=== PATIENT | female | born 1985 | race Caucasian/White ===

== ENCOUNTER → 2016-11-09 | Outpatient (CLI) | payer MEDICARE, OTHER ==
--- NOTE | 2016-11-09 12:56 | US ---
EXAMINATION TYPE: US kidneys/renal and bladder DATE OF EXAM: 11/09/2016 12:27 PM COMPARISON: CT abdomen and pelvis December 08, 2012. Renal ultrasound April 21, 2013. CLINICAL HISTORY: Renal failure, history of renal Bx. EXAM MEASUREMENTS: Right Kidney: 11.1 x 4.8 x 5.6cm Left Kidney: 10.3 x 5.9 x 4.7cm TECHNOLOGIST IMPRESSION: Right Kidney: wnl Left Kidney: 1.0 x 0.9 x 1.1cm hypoechoic cystic area inferior pole suspect simple cyst, 2.2 x 2.3 x 2.0cm hypoechoic to anechoic lobulated mid pole favor lobulated otherwise simple cyst, solid lesion however is not entirely excluded. Bladder: wnl Bilateral Jets seen: yes There is no evidence for hydronephrosis at this point in time. The urinary bladder is anechoic. Bila teral ureteral jets are seen. IMPRESSION: No hydronephrosis is evident bilaterally. Nonspecific lobulated 2.3 cm lesion mid pole level left kid mel could reflect simple cyst but solid lesion is not entirely excluded. Consider renal protocol cont rast-enhanced MRI to further evaluate. Normal Values: Renal Length = 9 - 12cm Bladder Wall: < 0.3cm
== END | disposition home or self-care (01) ==
LOC: RADUSWWP 12:06
PROVIDERS: ATTEND Internal Medicine Nephrology
DX: N28.89 Other specified disorders of kidney and ureter (principal)
CPT/HCPCS: 76770

== ENCOUNTER → 2016-12-15 | Outpatient (CLI) | payer MEDICARE, OTHER ==
[2016-12-15 12:53] LABS: ALT 33 U/L (9-52); AST 26 U/L (14-36); C Reactive Protein <5.0 mg/L (<10.0); Non-African American GFR(MDRD) >60 (>60 ml/min/1.73 sqM)
[2016-12-15 13:28] LABS: Basophils % (A) 0 %; CH 31.4; Eosinophils % (A) 0 %; HDW 2.55; HGB 13.3 gm/dL (11.4-16.0); Luc # (Auto) 0.08; Luc % (Auto) 2; Lymphocytes # (A) 1.4 k/uL (1.0-4.8); Lymphocytes % (A) 28 %; MCHC 32.5 g/dL (31.0-37.0); MCV 95.4 fL (80.0-100.0); Mean Platelet Volume 8.4; Monocytes # (A) 0.2 k/uL (0-1.0); Monocytes % (A) 4 %; Neutrophils # (A) 3.4 k/uL (1.3-7.7); Neutrophils % (A) 67 %; RBC 4.29 m/uL (3.80-5.40); RDW 12.1 % (11.5-15.5); WBC 5.1 k/uL (3.8-10.6); WBC (Perox) 5.35
[2016-12-15 14:03] LABS: Appearance,Urine Cloudy (Clear); Bacteria,Urine Rare /hpf; Bilirubin,Urine Negative (Negative); Glucose,Urine (UA) Negative (Negative); Ketones,Urine Trace (Negative); Leukocyte Esterase,Urine Negative (Negative); Mucus,Urine Rare /hpf; Nitrite,Urine Negative (Negative); Particle Count 18506; Protein,Urine 3+ (Negative); RBC,Urine 5 /hpf (0-5); Specific Gravity,Urine 1.031 (1.001-1.035); Squamous Epithelial Cell,Urine 4 /hpf (0-4); UA Billing (MACRO vs. MICRO) MICRO; WBC,Urine 4 /hpf (0-5)
[2016-12-15 15:22] LABS: Erythrocyte Sedimentation Rate 13 mm/hr (0-20)
[2016-12-25 06:15] LABS: Mis test requested (Non-blood) Urine Prot/Crt Ratio
== END | disposition home or self-care (01) ==
LOC: LABWHC1 12:10
PROVIDERS: ATTEND Internal Medicine Rheumatology
DX: M32.9 Systemic lupus erythematosus, unspecified (principal)
CPT/HCPCS: 36415; 81001; 82565; 82570; 84450; 84460; 85025; 85652; 86140

== ENCOUNTER 2017-02-18 10:44 | Emergency (ER) | payer MEDICARE, OTHER ==
[2017-02-18] MEDS ORDERED: SODIUM CHLORIDE 0.9% 1,000 ML IV STA (11:34)
[2017-02-18] MEDS ORDERED: KETOROLAC 30 MG/ML 1 ML VIAL IVP STA (11:34)
[2017-02-18] MEDS ORDERED: METOCLOPRAMIDE 5 MG/ML 2 ML VIAL IVP STA (11:34)
--- NOTE | 2017-02-18 11:44 | ED ---
General Adult HPI - General Chief complaint: Upper Respiratory Infection Stated complaint: body aches,nausea Time Seen by Provider: 02/18/17 11:20 Source: patient, RN notes reviewed Mode of arrival: wheelchair Limitations: no limitations - History of Present Illness Initial comments: Patient 31-year-old female who presents emergency room today with chief complaint of having symptoms of nausea and headache off-and-on over the last 4 months. She states symptoms started around the first of the year. She states she's talked her family doctor about them. She states today she is tired of being strong at home and decided to come here to the emergency room for this. She states she takes [place] for pain. States took one this morning the pain is increasing again. Does admit to headache the front of the head. States she's had headaches worse than this in the past. She states she does have symptoms of nausea no vomiting. Does admit to some abdominal pain that comes and goes cramping in nature. Patient denies any other complaints or associated symptoms at this time. She admits to history of lupus is unsure if the symptoms are related. Patient denies any recent fever, chills, shortness of breath, chest pain, back pain, vomiting, numbness or tingling, dysuria or hematuria, constipation or diarrhea, visual changes, or any other complaints. - Related Data Home Medications Medication Instructions Recorded Confirmed ALPRAZolam [Xanax] 2 mg PO TID 11/12/14 02/18/17 predniSONE [Prednisone] 5 mg PO QAM 11/12/14 02/18/17 HYDROcodone/APAP 10-325MG [[place] 1 tab PO Q4HR PRN 02/18/17 02/18/17 10-325] Hydroxychloroquine Sulfate 400 mg PO BID 02/18/17 02/18/17 [Plaquenil] Lisinopril [Lisinopril] 2.5 mg PO HS 02/18/17 02/18/17 Methotrexate Sodium [Methotrexate] 20 mg PO Th 02/18/17 02/18/17 Pnv with Ca,No.72/Iron/FA 1 tab PO DAILY 02/18/17 02/18/17 [ Plus Tablet] Pregabalin [Lyrica] 150 mg PO HS 02/18/17 02/18/17 Previous Rx's Medication Instructions Recorded Mycophenolate Mofetil [Cellcept] 1,000 mg PO BID tab 07/28/15 Nicotine 21Mg/24Hr Patch [Habitrol] 1 patch TRANSDERM DAILY patch 07/28/15 Omeprazole [PriLOSEC] 20 mg PO AC-BRKFST capsule. 07/28/15 Ondansetron Odt [Zofran ODT] 4 mg PO Q8HR PRN #20 tab 02/18/17 Allergies Allergy/AdvReac Type Severity Reaction Status Date / Time rituximab [From Rituxan] Allergy Anaphylaxis Verified 07/25/15 19:25 amlodipine besylate AdvReac Swelling Verified 07/25/15 19:25 [From Norvasc] Review of Systems ROS Statement: Those systems with pertinent positive or pertinent negative responses have been documented in the HPI. ROS Other: All systems not noted in ROS Statement are negative. Past Medical History Past Medical History: Cancer, Fibromyalgia, GERD/Reflux, Hypertension, Pneumonia , Renal Disease, Rheumatoid Arthritis (RA) Additional Past Medical History / Comment(s): Systemic Lupus, lupus nephritis with acute kidney injury 2012, Raynauds, chronic anemia requiring iron infusions and blood infusions, basal cell carcinoma right lower leg, hiatal hernia, migraines. History of Any Multi-Drug Resistant Organisms: None Reported Past Surgical History: Cholecystectomy Additional Past Surgical History / Comment(s): L shoulder bone shaved, lymph nodes removedx3 from bilateral axilla-benign, colonoscopy Past Anesthesia/Blood Transfusion Reactions: No Reported Reaction Past Psychological History: Anxiety, Depression Additional Psychological History / Comment(s): mild deprssion and this past week not sleeping good d/t nite sweats and pain getting maybe 2-3 hours sleep per night Smoking Status: Current every day smoker Past Alcohol Use History: Occasional Additional Past Alcohol Use History / Comment(s): started smoking at age 12 amokes 1/2-1 ppd. She denies any medical marijuana, marijuana, street drug use. She drinks alcohol rarely. She lives at home and has a cat and rabbit in the house. She is currently on disability. She denies any recent travel although [place]'s gone [place]. Past Drug Use History: None Reported - Past Family History Sister(s) Additional Family Medical History / Comment(s): pt's 1/2 sister had lupus Mother Family Medical History: Rheumatoid Arthritis (RA) Additional Family Medical History / Comment(s): hep c. maternal grandmother had dementia Father History Unknown: Yes Additional Family Medical History / Comment(s): pt's dad when she was 2 General Exam - General Exam Comments Initial Comments: General: The patient is awake and alert, in no distress, and does not appear acutely ill. Eye: Pupils are equal, round and reactive to light, extra-ocular movements are intact. No nystagmus. There is normal conjunctiva bilaterally. No signs of icterus. Ears, nose, mouth and throat: There are moist mucous membranes and no oral lesions. Neck: The neck is supple, there is no tenderness or JVD. Cardiovascular: There is a regular rate and rhythm. No murmur, rub or gallop is appreciated. Respiratory: Lungs are clear to auscultation, respirations are non-labored, breath sounds are equal. No wheezes, stridor, rales, or rhonchi. Gastrointestinal: Normal appearance abdomen. Normal bowel sounds. Abdomen soft on palpation. Mild tenderness epigastric and right lower quadrant. No rebound tenderness. No guarding. No CVA tenderness. Musculoskeletal: Normal ROM, no tenderness. Strength 5/5. Sensation intact. Pulses equal bilaterally 2+. Neurological: A&O x 3. CN II-XII intact, There are no obvious motor or sensory deficits. Coordination appears grossly intact. Speech is normal. Skin: Skin is warm and dry and no rashes or lesions are noted. Psychiatric: Cooperative, appropriate mood & affect, normal judgment. Limitations: no limitations Course Vital Signs 02/18/17 10:45 Temperature 99.8 F H Pulse Rate 101 H Respiratory 18 Rate Blood Pressure 135/82 O2 Sat by Pulse 100 Oximetry Medical Decision Making - Medical Decision Making Patient reexamined at this time shows no signs of distress. She is resting comfortably. Does not that symptoms have improved after medications given here in the emergency room. Patient will be discharged home with nausea medication. Advised to follow-up the family doctor over the next 2 days. Advised to increase oral fluids. Advised return for any other concerns. She states understanding and is in agreement with this plan. - Lab Data Result diagrams: 02/18/17 12:00 02/18/17 12:00 Lab Results 02/18/17 02/18/17 02/18/17 Range/Units 12:00 12:00 12:00 WBC 7.0 (3.8-10.6) k/uL RBC 4.23 (3.80-5.40) m/uL Hgb 13.8 (11.4-16.0) gm/dL Hct 40.7 (34.0-46.0) % MCV 96.1 (80.0-100.0) fL MCH 32.7 (25.0-35.0) pg MCHC 34.0 (31.0-37.0) g/dL RDW 12.3 (11.5-15.5) % Plt Count 131 L (150-450) k/uL Neutrophils % 81 % Lymphocytes % 16 % Monocytes % 3 % Eosinophils % 0 % Basophils % 0 % Neutrophils # 5.6 (1.3-7.7) k/uL Lymphocytes # 1.1 (1.0-4.8) k/uL Monocytes # 0.2 (0-1.0) k/uL Eosinophils # 0.0 (0-0.7) k/uL Basophils # 0.0 (0-0.2) k/uL Sodium 143 (137-145) mmol/L Potassium 4.8 (3.5-5.1) mmol/L Chloride 106 (98-107) mmol/L Carbon Dioxide 28 (22-30) mmol/L Anion Gap 9 mmol/L BUN 16 (7-17) mg/dL Creatinine 0.80 (0.52-1.04) mg/dL Est GFR (MDRD) Af Amer >60 (>60 ml/min/1.73 sqM) Est GFR (MDRD) Non-Af >60 (>60 ml/min/1.73 sqM) Glucose 86 (74-99) mg/dL Calcium 9.3 (8.4-10.2) mg/dL Total Bilirubin 0.4 (0.2-1.3) mg/dL AST 24 (14-36) U/L ALT 26 (9-52) U/L Alkaline Phosphatase 42 (38-126) U/L Total Protein 7.2 (6.3-8.2) g/dL Albumin 4.4 (3.5-5.0) g/dL Amylase 80 (30-110) U/L Lipase 81 (23-300) U/L Urine Color Urine Appearance (Clear) Urine pH (5.0-8.0) Ur Specific [place] (1.001-1.035) Urine Protein (Negative) Urine Glucose (UA) (Negative) Urine Ketones (Negative) Urine Blood (Negative) Urine Nitrite (Negative) Urine Bilirubin (Negative) Urine Urobilinogen (<2.0) mg/dL Ur Leukocyte Esterase (Negative) Urine HCG, Qual Not Detected (Not Detectd) 02/18/17 Range/Units 12:00 WBC (3.8-10.6) k/uL RBC (3.80-5.40) m/uL Hgb (11.4-16.0) gm/dL Hct (34.0-46.0) % MCV (80.0-100.0) fL MCH (25.0-35.0) pg MCHC (31.0-37.0) g/dL RDW (11.5-15.5) % Plt Count (150-450) k/uL Neutrophils % % Lymphocytes % % Monocytes % % Eosinophils % % Basophils % % Neutrophils # (1.3-7.7) k/uL Lymphocytes # (1.0-4.8) k/uL Monocytes # (0-1.0) k/uL Eosinophils # (0-0.7) k/uL Basophils # (0-0.2) k/uL Sodium (137-145) mmol/L Potassium (3.5-5.1) mmol/L Chloride (98-107) mmol/L Carbon Dioxide (22-30) mmol/L Anion Gap mmol/L BUN (7-17) mg/dL Creatinine (0.52-1.04) mg/dL Est GFR (MDRD) Af Amer (>60 ml/min/1.73 sqM) Est GFR (MDRD) Non-Af (>60 ml/min/1.73 sqM) Glucose (74-99) mg/dL Calcium (8.4-10.2) mg/dL Total Bilirubin (0.2-1.3) mg/dL AST (14-36) U/L ALT (9-52) U/L Alkaline Phosphatase (38-126) U/L Total Protein (6.3-8.2) g/dL Albumin (3.5-5.0) g/dL Amylase (30-110) U/L Lipase (23-300) U/L Urine Color Colorless Urine Appearance Clear (Clear) Urine pH 6.5 (5.0-8.0) Ur Specific [place] 1.003 (1.001-1.035) Urine Protein Negative (Negative) Urine Glucose (UA) Negative (Negative) Urine Ketones Negative (Negative) Urine Blood Negative (Negative) Urine Nitrite Negative (Negative) Urine Bilirubin Negative (Negative) Urine Urobilinogen <2.0 (<2.0) mg/dL Ur Leukocyte Esterase Negative (Negative) Urine HCG, Qual (Not Detectd) Disposition Clinical Impression: Nausea, Headache Disposition: HOME SELF-CARE Condition: Good Additional Instructions: Please use medication as discussed. Please follow-up with family doctor in the next 2 days. Please return to emergency room if the symptoms increase or worsen or for any other concerns. Prescriptions: Ondansetron Odt [Zofran ODT] 4 mg PO Q8HR PRN #20 tab PRN Reason: Nausea Time of Disposition: 13:29
[2017-02-18] MEDS ORDERED: ONDANSETRON 4 MG/2 ML VIAL IVP STA (12:07)
[2017-02-18 12:19] LABS: Appearance,Urine Clear (Clear); Bilirubin,Urine Negative (Negative); Glucose,Urine (UA) Negative (Negative); Ketones,Urine Negative (Negative); Leukocyte Esterase,Urine Negative (Negative); Nitrite,Urine Negative (Negative); PH, Urine 6.5 (5.0-8.0); Protein,Urine Negative (Negative); Specific Gravity,Urine 1.003 (1.001-1.035); UA Billing (MACRO vs. MICRO) CHEM; Urobilinogen,Urine <2.0 mg/dL (<2.0)
[2017-02-18 12:22] LABS: Basophils % (A) 0 %; CH 31.7; CHCM 33.1; Eosinophils % (A) 0 %; HCT 40.7 % (34.0-46.0); HGB 13.8 gm/dL (11.4-16.0); Luc # (Auto) 0.04; Luc % (Auto) 1; Lymphocytes # (A) 1.1 k/uL (1.0-4.8); Lymphocytes % (A) 16 %; MCH 32.7 pg (25.0-35.0); MCV 96.1 fL (80.0-100.0); Mean Platelet Volume 8.4; Monocytes # (A) 0.2 k/uL (0-1.0); Monocytes % (A) 3 %; Neutrophils # (A) 5.6 k/uL (1.3-7.7); Neutrophils % (A) 81 %; RBC 4.23 m/uL (3.80-5.40); RDW 12.3 % (11.5-15.5); WBC (Perox) 7.15
[2017-02-18 12:34] LABS: ALT 26 U/L (9-52); AST 24 U/L (14-36); Alkaline Phosphatase 42 U/L (38-126); Amylase 80 U/L (30-110); Anion Gap 9 mmol/L; Blood Urea Nitrogen 16 mg/dL (7-17); Calcium 9.3 mg/dL (8.4-10.2); Carbon Dioxide 28 mmol/L (22-30); Chloride 106 mmol/L (98-107); Glucose 86 mg/dL (74-99); Non-African American GFR(MDRD) >60 (>60 ml/min/1.73 sqM); Potassium 4.8 mmol/L (3.5-5.1); Sodium 143 mmol/L (137-145); Total Bilirubin 0.4 mg/dL (0.2-1.3); Total Protein 7.2 g/dL (6.3-8.2)
--- NOTE | 2017-02-18 13:22 | XR ---
EXAMINATION TYPE: XR KUB DATE OF EXAM: 02/18/2017 1:12 PM CLINICAL DATA: 31-year-old female with pain, nausea, and headaches, PHH COMPARISON: None FINDINGS: Lung bases are clear. Cholecystectomy clips. Umbilical ornamentation. No evidence for free intraperitoneal air. No dilated small bowel or air-fluid levels. Scattered air and stool seen throughout the colon extendi ng distally into the rectum. There is moderate scattered stool. Phlebolith in the left hemipelvis. No suspicious calcifications identified. IMPRESSION: Moderate stool burden. No evidence of bowel obstruction or free intraperitoneal air.
[2017-02-18] MEDS ORDERED: HYDROmorphone 1 MG/ML 1 ML SYRINGE IVP STA (13:32)
[2017-02-18 13:43] VITALS: BP 118/64; PULSE 64; RESP 16; TEMP 98.8
== END 2017-02-18 15:12 | disposition home or self-care (01) ==
LOC: EC 10:44
DX: R11.0 Nausea (principal); R51 Headache; M79.7 Fibromyalgia; I10 Essential (primary) hypertension; M06.9 Rheumatoid arthritis, unspecified; F17.200 Nicotine dependence, unspecified, uncomplicated; Z90.49 Acquired absence of other specified parts of digestive tract; Z85.828 Personal history of other malignant neoplasm of skin; Z88.8 Allergy status to other drugs, medicaments and biological substances; Z79.52 Long term (current) use of systemic steroids; Z79.899 Other long term (current) drug therapy
CPT/HCPCS: 99283; 96374; 96375 ×3; 96361; 36415; 80053; 82150; 83690; 85025; 81003; 81025; 74000; J2765; J2405; J1885; J1170

== ENCOUNTER → 2017-03-18 | Outpatient (CLI) | payer MEDICARE, OTHER ==
--- NOTE | 2017-03-20 16:28 | MR ---
EXAMINATION TYPE: MR kidney wo/w con DATE OF EXAM: 03/18/2017 9:59 PM COMPARISON: Ultrasound 11/09/[address] 12/08/2012 HISTORY: 31 year-old female history of Lupus, abnormal ultrasound. Technique: Multiplanar, multisequence images of the abdomen were obtained before and after administra tion of 10 mL intravenous MultiHance gadolinium contrast. FINDINGS: No significant loss of signal within the liver on out of phase T1-weighted sequence. There is a small 8 mm wedge-shaped focus of enhancement along the anterior right liver lobe, axial image 366. This en hances on arterial phase and equilibrates on later contrast series suggesting area of vascular shunti ng. Otherwise, no focal liver lesion or biliary ductal dilatation. Portal venous system is patent. Adrenal glands, spleen, and pancreas show no gross abnormality. Susceptibility artifact relating to c holecystectomy clips. Symmetric uptake and excretion of contrast from both kidneys. At the lateral left midpole, there is a small 8 mm nonenhancing cortical cyst. No suspicious enhancing mass is seen. No abdominal ascites, lymphadenopathy, or gross bowel abnormality seen. Prominent and ingested debri s distending the stomach. IMPRESSION: No suspicious renal mass. There is symmetric uptake and excretion of contrast from the kidneys and a small, benign 8 mm cortical cyst at the left midpole.
== END ==
LOC: RADMRIMAIN 21:05
PROVIDERS: ATTEND Family Medicine
DX: N28.1 Cyst of kidney, acquired (principal)
CPT/HCPCS: 74183; A9577

== ENCOUNTER → 2017-05-10 | Outpatient (CLI) | payer MEDICARE, OTHER ==
[2017-05-10 14:20] LABS: Basophils % (A) 0 %; CH 31.6; CHCM 33.7; Eosinophils % (A) 0 %; HCT 38.5 % (34.0-46.0); HDW 2.33; HGB 13.4 gm/dL (11.4-16.0); Luc # (Auto) 0.07; Luc % (Auto) 1; Lymphocytes # (A) 1.4 k/uL (1.0-4.8); Lymphocytes % (A) 14 %; MCH 32.7 pg (25.0-35.0); MCHC 34.7 g/dL (31.0-37.0); MCV 94.1 fL (80.0-100.0); Mean Platelet Volume 8.3; Monocytes # (A) 0.2 k/uL (0-1.0); Monocytes % (A) 2 %; Neutrophils # (A) 8.4 k/uL (1.3-7.7); Neutrophils % (A) 83 %; RBC 4.09 m/uL (3.80-5.40); RDW 12.5 % (11.5-15.5); WBC 10.1 k/uL (3.8-10.6); WBC (Perox) 10.32
[2017-05-10 14:24] LABS: Appearance,Urine Clear (Clear); Bacteria,Urine Rare /hpf; Bilirubin,Urine Negative (Negative); Glucose,Urine (UA) Negative (Negative); Ketones,Urine Negative (Negative); Leukocyte Esterase,Urine Negative (Negative); Mucus,Urine Rare /hpf; Nitrite,Urine Negative (Negative); Particle Count 7985; Protein,Urine 1+ (Negative); RBC,Urine 4 /hpf (0-5); Squamous Epithelial Cell,Urine 6 /hpf (0-4); UA Billing (MACRO vs. MICRO) MICRO; WBC,Urine 2 /hpf (0-5)
[2017-05-10 14:31] LABS: ALT 35 U/L (9-52); AST 27 U/L (14-36); C Reactive Protein <5.0 mg/L (<10.0); Non-African American GFR(MDRD) >60 (>60 ml/min/1.73 sqM)
[2017-05-10 18:53] LABS: Erythrocyte Sedimentation Rate 7 mm/hr (0-20)
== END | disposition home or self-care (01) ==
LOC: LABWHC1 13:58
PROVIDERS: ATTEND Internal Medicine Rheumatology
DX: M32.14 Glomerular disease in systemic lupus erythematosus (principal); M06.4 Inflammatory polyarthropathy
CPT/HCPCS: 36415; 81001; 82565; 84450; 84460; 85025; 85652; 86140

== ENCOUNTER → 2017-08-15 | Outpatient (CLI) | payer MEDICARE, OTHER ==
[2017-08-15 12:20] LABS: ALT 40 U/L (9-52); AST 27 U/L (14-36); C Reactive Protein <5.0 mg/L (<10.0); Non-African American GFR(MDRD) >60 (>60 ml/min/1.73 sqM)
[2017-08-15 12:30] LABS: Basophils % (A) 0 %; CH 31.3; Eosinophils % (A) 0 %; HDW 2.31; HGB 13.1 gm/dL (11.4-16.0); Luc # (Auto) 0.11; Luc % (Auto) 2; Lymphocytes # (A) 1.8 k/uL (1.0-4.8); Lymphocytes % (A) 26 %; MCH 31.4 pg (25.0-35.0); MCHC 31.9 g/dL (31.0-37.0); MCV 98.4 fL (80.0-100.0); Monocytes # (A) 0.2 k/uL (0-1.0); Monocytes % (A) 3 %; Neutrophils # (A) 4.9 k/uL (1.3-7.7); Neutrophils % (A) 70 %; RBC 4.16 m/uL (3.80-5.40); RDW 11.9 % (11.5-15.5); WBC (Perox) 7.16
[2017-08-15 12:54] LABS: Appearance,Urine Clear (Clear); Bilirubin,Urine Negative (Negative); Glucose,Urine (UA) Negative (Negative); Ketones,Urine Negative (Negative); Leukocyte Esterase,Urine Negative (Negative); Nitrite,Urine Negative (Negative); Protein,Urine Trace (Negative); Specific Gravity,Urine 1.017 (1.001-1.035); UA Billing (MACRO vs. MICRO) CHEM; Urobilinogen,Urine <2.0 mg/dL (<2.0)
[2017-08-15 14:09] LABS: Erythrocyte Sedimentation Rate 6 mm/hr (0-20)
== END | disposition home or self-care (01) ==
LOC: LABWHC1 11:43
PROVIDERS: ATTEND Internal Medicine Rheumatology
DX: M32.9 Systemic lupus erythematosus, unspecified (principal)
CPT/HCPCS: 36415; 81003; 82565; 84450; 84460; 85025; 85652; 86140

== ENCOUNTER 2017-10-21 11:04 | Emergency (ER) | payer MEDICARE, OTHER ==
[2017-10-21] MEDS ORDERED: HYDROmorphone 1 MG/ML 1 ML SYRINGE ONE (12:03)
[2017-10-21] MEDS ORDERED: ONDANSETRON 4 MG/2 ML VIAL ONE (12:03)
--- NOTE | 2017-10-22 12:41 | XR ---
EXAMINATION TYPE: TEMPORARY DATE OF EXAM: 10/21/2017 COMPARISON: NONE TECHNIQUE: One view submitted. HISTORY: Left flank pain FINDINGS: Surgical clips in the gallbladder fossa. There is a nonspecific gas pattern with no diagnostic eviden ce of obstruction. Calcifications of the pelvis are stable dating back to the previous exam. IMPRESSION: 1. Nonspecific abdomen.
[2017-10-22 16:18] LABS: Basophils % (A) 0 %; Eosinophils % (A) 0 %; HCT 41.2 % (34.0-46.0); HGB 13.8 gm/dL (11.4-16.0); Lymphocytes # (A) 1.6 k/uL (1.0-4.8); Lymphocytes % (A) 23 %; MCHC 33.5 g/dL (31.0-37.0); MCV 95.6 fL (80.0-100.0); Mean Platelet Volume 8.2; Monocytes # (A) 0.2 k/uL (0-1.0); Monocytes % (A) 3 %; Neutrophils # (A) 4.8 k/uL (1.3-7.7); Neutrophils % (A) 72 %; Platelet Count 158 k/uL (150-450); RBC 4.31 m/uL (3.80-5.40); WBC 6.7 k/uL (3.8-10.6)
[2017-10-22 16:49] LABS: ALT 35 U/L (9-52); AST 26 U/L (14-36); Albumin 4.7 g/dL (3.5-5.0); Alkaline Phosphatase 40 U/L (38-126); Amylase 83 U/L (30-110); Anion Gap 10 mmol/L; Appearance,Urine Clear (Clear); Bilirubin,Urine Negative (Negative); Blood Urea Nitrogen 16 mg/dL (7-17); Blood,Urine Negative (Negative); Calcium 9.6 mg/dL (8.4-10.2); Carbon Dioxide 28 mmol/L (22-30); Chloride 102 mmol/L (98-107); Color,Urine Light Yellow; Glucose 78 mg/dL (74-99); Glucose,Urine (UA) Negative (Negative); Ketones,Urine Negative (Negative); Leukocyte Esterase,Urine Negative (Negative); Lipase 88 U/L (23-300); Mucus,Urine Rare /hpf; Nitrite,Urine Negative (Negative); Potassium 4.4 mmol/L (3.5-5.1); Protein,Urine Trace (Negative); Sodium 140 mmol/L (137-145); Specific Gravity,Urine 1.006 (1.001-1.035); Squamous Epithelial Cell,Urine <1 /hpf (0-4); Total Bilirubin 0.3 mg/dL (0.2-1.3); Total Protein 7.2 g/dL (6.3-8.2); Urobilinogen,Urine <2.0 mg/dL (<2.0)
[2017-10-22 19:32] LABS: GGT <10 U/L (12-43)
== END 2017-10-21 14:30 | disposition home or self-care (01) ==
LOC: EC 11:04
DX: M54.5 Low back pain (principal); R10.9 Unspecified abdominal pain; F17.200 Nicotine dependence, unspecified, uncomplicated; Z79.891 Long term (current) use of opiate analgesic; Z88.8 Allergy status to other drugs, medicaments and biological substances
CPT/HCPCS: 36415; 80053; 82150; 82977; 83690; 85025; 81003; 81025; 87086; 74000; 99283; 96374; 96375; J2405; J1170

== ENCOUNTER → 2017-11-10 | Outpatient (CLI) | payer MEDICARE, OTHER ==
[2017-11-10 12:17] LABS: Basophils % (A) 0 %; Eosinophils % (A) 0 %; HCT 40.8 % (34.0-46.0); HGB 13.1 gm/dL (11.4-16.0); Lymphocytes # (A) 1.5 k/uL (1.0-4.8); Lymphocytes % (A) 22 %; MCH 31.2 pg (25.0-35.0); MCHC 32.2 g/dL (31.0-37.0); MCV 96.9 fL (80.0-100.0); Monocytes # (A) 0.2 k/uL (0-1.0); Monocytes % (A) 3 %; Neutrophils # (A) 5.2 k/uL (1.3-7.7); Neutrophils % (A) 74 %; Platelet Count 175 k/uL (150-450); RBC 4.21 m/uL (3.80-5.40); RDW 11.8 % (11.5-15.5); WBC 7.1 k/uL (3.8-10.6)
[2017-11-10 12:18] LABS: Appearance,Urine Clear (Clear); Bilirubin,Urine Negative (Negative); Blood,Urine Negative (Negative); Color,Urine Yellow; Glucose,Urine (UA) Negative (Negative); Hyaline Casts,Urine 3 /lpf (0-2); Ketones,Urine Negative (Negative); Leukocyte Esterase,Urine Negative (Negative); Mucus,Urine Occasional /hpf; Nitrite,Urine Negative (Negative); Protein,Urine 3+ (Negative); Specific Gravity,Urine 1.022 (1.001-1.035); Squamous Epithelial Cell,Urine 2 /hpf (0-4); WBC,Urine 5 /hpf (0-5)
[2017-11-10 12:44] LABS: ALT 34 U/L (9-52); AST 25 U/L (14-36)
[2017-11-10 15:36] LABS: Erythrocyte Sedimentation Rate 14 mm/hr (0-20)
== END | disposition home or self-care (01) ==
LOC: LABWHC1 11:38
PROVIDERS: ATTEND Internal Medicine Rheumatology
DX: M32.14 Glomerular disease in systemic lupus erythematosus (principal); M06.4 Inflammatory polyarthropathy
CPT/HCPCS: 36415; 81001; 82565; 84450; 84460; 85025; 85652; 86140

== ENCOUNTER → 2017-11-24 | Outpatient (CLI) | payer MEDICARE, OTHER ==
[2017-11-24 11:59] LABS: Collection Time,Urine 24 hrs; Total Volume 24 Hour,Urine 950 mls (800-1800)
[2017-11-24 12:19] LABS: Total Protein 24 Hour,Urine 266 mg/24hr (42.0-225.0)
[2017-11-24 12:19] LABS: Creatinine,Urine Random 201.1 mg/dL
[2017-11-24 22:16] LABS: DNA Double-Stranded NEGATIVE (NEGATIVE)
[2017-11-25 11:38] LABS: Complement C3 78.5 mg/dL (80.0-207.0)
[2017-11-25 12:11] LABS: ANA Pattern Homogeneous; ANA Pattern 2 Nucleolar
[2017-11-25 14:38] LABS: C-ANCA <1:20 Titer (<1:20); P-ANCA <1:20 Titer (<1:20)
== END ==
LOC: LABWHC1 10:52
PROVIDERS: ATTEND Nurse Practitioner Family
DX: N39.0 Urinary tract infection, site not specified (principal); R80.9 Proteinuria, unspecified
CPT/HCPCS: 36415; 81050; 82570; 83516; 83883; 84156; 84166; 86038; 86039; 86160; 86162; 86225; 86255; 86334

== ENCOUNTER → 2018-03-07 | Outpatient (CLI) | payer MEDICARE, OTHER ==
[2018-03-07 13:46] LABS: Basophils % (A) 0 %; Eosinophils % (A) 0 %; HCT 39.5 % (34.0-46.0); HGB 13.3 gm/dL (11.4-16.0); Lymphocytes # (A) 1.9 k/uL (1.0-4.8); Lymphocytes % (A) 21 %; MCH 31.3 pg (25.0-35.0); MCHC 33.6 g/dL (31.0-37.0); MCV 93.2 fL (80.0-100.0); Mean Platelet Volume 7.9; Monocytes # (A) 0.2 k/uL (0-1.0); Monocytes % (A) 3 %; Neutrophils # (A) 6.9 k/uL (1.3-7.7); Neutrophils % (A) 75 %; Platelet Count 180 k/uL (150-450); RBC 4.24 m/uL (3.80-5.40); RDW 11.6 % (11.5-15.5); WBC 9.2 k/uL (3.8-10.6)
[2018-03-07 13:48] LABS: Appearance,Urine Clear (Clear); Bilirubin,Urine Negative (Negative); Blood,Urine Negative (Negative); Color,Urine Yellow; Glucose,Urine (UA) Negative (Negative); Ketones,Urine Negative (Negative); Leukocyte Esterase,Urine Negative (Negative); Mucus,Urine Occasional /hpf; Nitrite,Urine Negative (Negative); PH, Urine 5.5 (5.0-8.0); Protein,Urine 1+ (Negative); RBC,Urine 1 /hpf (0-5); Specific Gravity,Urine 1.018 (1.001-1.035); Squamous Epithelial Cell,Urine 7 /hpf (0-4); Urobilinogen,Urine <2.0 mg/dL (<2.0); WBC,Urine 1 /hpf (0-5)
[2018-03-07 14:09] LABS: ALT 19 U/L (9-52); AST 26 U/L (14-36); C Reactive Protein <5.0 mg/L (<10.0)
[2018-03-07 14:35] LABS: Erythrocyte Sedimentation Rate 3 mm/hr (0-20)
== END | disposition home or self-care (01) ==
LOC: LABWHC1 13:23
PROVIDERS: ATTEND Internal Medicine Rheumatology
DX: M32.9 Systemic lupus erythematosus, unspecified (principal)
CPT/HCPCS: 36415; 81001; 82565; 84450; 84460; 85025; 85652; 86140

== ENCOUNTER → 2018-03-15 | Outpatient (CLI) | payer MEDICARE, OTHER ==
[2018-03-15 14:44] LABS: Blood Urea Nitrogen 15 mg/dL (7-17)
--- NOTE | 2018-03-15 16:57 | CT ---
EXAMINATION TYPE: CT abdomen pelvis w con DATE OF EXAM: 03/15/2018 HISTORY: Pelvic pain with nausea. CT DLP: 773mGycm Automated Exposure Control for Dose Reduction was Utilized. CONTRAST: CT scan of the abdomen and pelvis is performed with IV Contrast, patient injected with 100 mL of Isov ue 300. COMPARISON: CT abdomen and pelvis December 08, 2012. MRI kidneys July 19, 2017. FINDINGS: LUNG BASES: No significant abnormality is appreciated. LIVER/GB: Cholecystectomy clips are redemonstrated. PANCREAS: No significant abnormality is seen. SPLEEN: Single calcification in the spleen axial image 20 is noted.. ADRENALS: No significant abnormality is seen. KIDNEYS: There is simple appearing 9 mm cyst laterally mid to lower pole level left kidney series 7 i mage 34 on current study. There is symmetric cortical medullary uptake and excretion without evidence of hydronephrosis bilaterally.. BOWEL: Oral contrast reaches level of rectum. Evaluation bowel is slightly suboptimal as patient has very little intra-abdominal fat. There is low lying cecum into the right pelvis. There is no suspicio us small or large bowel dilatation. UTERUS/ADNEXA: Uterus is anteverted in shape projecting to the right of midline. Both ovaries are see n, left slightly larger than right. Occasional left-sided pelvic phleboliths are present. LYMPH NODES: No greater than 1cm abdominal or pelvic lymph nodes are appreciated. OSSEOUS STRUCTURES: No significant abnormality is seen. OTHER: No significant additional abnormality is seen. IMPRESSION: No bowel obstruction is present. No significant acute finding is seen to account for lai ent's clinical symptoms.
== END | disposition home or self-care (01) ==
LOC: RADCTMAIN 13:53
PROVIDERS: ATTEND Family Medicine
DX: R10.9 Unspecified abdominal pain (principal); Z88.8 Allergy status to other drugs, medicaments and biological substances
CPT/HCPCS: 82565; 84520; 74177; 36415; Q9967

== ENCOUNTER 2018-03-31 11:08 | Emergency (ER) | payer MEDICARE, OTHER ==
[2018-03-31 11:24] VITALS: BP 116/70; PULSE 83; RESP 16; TEMP 98.9
[2018-03-31] MEDS ORDERED: HYDROcodone/APAP 10-325MG 1 EACH TAB PO ONE (11:34)
--- NOTE | 2018-03-31 11:36 | ED ---
Upper Extremity HPI - General Chief Complaint: Extremity Injury, Upper Stated Complaint: Possible broken finger Time Seen by Provider: 03/31/18 11:27 Source: patient, RN notes reviewed Mode of arrival: ambulatory Limitations: no limitations - History of Present Illness Initial Comments: This is a 32-year-old female presents emergency Department chief complaint of right hand fourth digit injury. Patient states that she was up [facility] states that she does not 4 rhodes and which tipped over striking her hand. Patient states she had no other injuries she states it has been painful states that his been worse. She states that there is bruising into her hand and that she has pain that radiates into her hand but primarily the pain is associated with her fourth digit. Patient has limited range of motion. Denies any paresthesias. - Related Data Home Medications Medication Instructions Recorded Confirmed ALPRAZolam [Xanax] 2 mg PO TID 11/12/14 03/31/18 predniSONE [Prednisone] 5 mg PO QAM 11/12/14 03/31/18 HYDROcodone/APAP 10-325MG [[place] 1 tab PO Q4HR PRN 02/18/17 03/31/18 10-325] Hydroxychloroquine Sulfate 200 mg PO BID 02/18/17 03/31/18 [Plaquenil] Lisinopril [Lisinopril] 2.5 mg PO HS 02/18/17 03/31/18 Methotrexate Sodium [Methotrexate] 15 mg PO Th 02/18/17 03/31/18 Pnv,Calcium 72/Iron/Folic Acid 1 tab PO DAILY 02/18/17 03/31/18 [ Plus Tablet] Pregabalin [Lyrica] 150 mg PO HS 02/18/17 03/31/18 Previous Rx's Medication Instructions Recorded Mycophenolate Mofetil [Cellcept] 1,000 mg PO BID tab 07/28/15 Omeprazole [PriLOSEC] 20 mg PO AC-BRKFST capsule. 07/28/15 Allergies Allergy/AdvReac Type Severity Reaction Status Date / Time rituximab [From Rituxan] Allergy Anaphylaxis Verified 03/31/18 11:37 amlodipine besylate AdvReac Swelling Verified 03/31/18 11:37 [From Norvasc] Review of Systems ROS Statement: Those systems with pertinent positive or pertinent negative responses have been documented in the HPI. ROS Other: All systems not noted in ROS Statement are negative. Past Medical History Past Medical History: Cancer, Fibromyalgia, GERD/Reflux, Hypertension, Pneumonia , Renal Disease, Rheumatoid Arthritis (RA) Additional Past Medical History / Comment(s): Systemic Lupus, lupus nephritis with acute kidney injury 2012, Raynauds, chronic anemia requiring iron infusions and blood infusions, basal cell carcinoma right lower leg, hiatal hernia, migraines. History of Any Multi-Drug Resistant Organisms: None Reported Past Surgical History: Cholecystectomy Additional Past Surgical History / Comment(s): L shoulder bone shaved, lymph nodes removedx3 from bilateral axilla-benign, colonoscopy Past Anesthesia/Blood Transfusion Reactions: No Reported Reaction Past Psychological History: Anxiety, Depression Smoking Status: Current every day smoker Past Alcohol Use History: Occasional Past Drug Use History: None Reported - Past Family History Sister(s) Additional Family Medical History / Comment(s): pt's 1/2 sister had lupus Mother Family Medical History: Rheumatoid Arthritis (RA) Additional Family Medical History / Comment(s): hep c. maternal grandmother had dementia Father History Unknown: Yes Additional Family Medical History / Comment(s): pt's dad when she was 2 General Exam Limitations: no limitations General appearance: alert, in no apparent distress Head exam: Present: atraumatic, normocephalic, normal inspection Neck exam: Present: normal inspection. Absent: tenderness, meningismus, lymphadenopathy Respiratory exam: Present: normal lung sounds bilaterally. Absent: respiratory distress, wheezes, rales, rhonchi, stridor Cardiovascular Exam: Present: regular rate, normal rhythm, normal heart sounds. Absent: systolic murmur, diastolic murmur, rubs, gallop, clicks Extremities exam: Present: other (Right hand fourth digit there is moderate swelling and tenderness palpation in the mid digit, there is ecchymosis that extends in the dorsal aspect of the hand with minimal tenderness patient has full range of motion at the wrist pain is neurovascularly intact) Skin exam: Present: warm, dry, intact, normal color. Absent: rash Course Vital Signs 03/31/18 11:20 Temperature 98.9 F Pulse Rate 83 Respiratory 16 Rate Blood Pressure 116/70 O2 Sat by Pulse 100 Oximetry Medical Decision Making - Medical Decision Making 32-year-old female presents for right hand injury. Patient has a fracture of her fourth digit. Patient was placed in a finger splint and will follow-up. Return parameters were discussed. Disposition Clinical Impression: Finger fracture, right Disposition: HOME SELF-CARE Condition: Stable Instructions: Finger Fracture (ED) Additional Instructions: Please return to the Emergency Department if symptoms worsen or any other concerns. Is patient prescribed a controlled substance at d/c from ED?: No Referrals: Stepna Sevilla MD [Primary Care Provider] - 1-2 days Abilio Valiente DO [Doctor of Osteopathic Medicine] - 1-2 days Time of Disposition: 12:34
--- NOTE | 2018-03-31 12:33 | XR ---
Right hand HISTORY: Trauma and pain 3 views of the right hand There is an oblique fracture through the diaphysis of the proximal phalanx fourth digit of the right hand with minimal displacement. No dislocation. IMPRESSION: Fourth digit fracture
== END 2018-03-31 12:50 | disposition home or self-care (01) ==
LOC: EC 11:08
DX: S62.604A Fracture of unspecified phalanx of right ring finger, initial encounter for closed fracture (principal); M32.9 Systemic lupus erythematosus, unspecified; M32.14 Glomerular disease in systemic lupus erythematosus; I10 Essential (primary) hypertension; M79.7 Fibromyalgia; D64.9 Anemia, unspecified; F32.9 Major depressive disorder, single episode, unspecified; F41.9 Anxiety disorder, unspecified; F17.200 Nicotine dependence, unspecified, uncomplicated; Z79.52 Long term (current) use of systemic steroids; Z79.899 Other long term (current) drug therapy; Z88.8 Allergy status to other drugs, medicaments and biological substances; V86.95XA Unspecified occupant of 3- or 4- wheeled all-terrain vehicle (ATV) injured in nontraffic accident, initial encounter; Y92.89 Other specified places as the place of occurrence of the external cause
CPT/HCPCS: 99283

== ENCOUNTER → 2018-05-30 | Outpatient (CLI) | payer MEDICARE, OTHER ==
[2018-05-30 13:20] LABS: Basophils % (A) 0 %; Eosinophils % (A) 0 %; HCT 38.5 % (34.0-46.0); HGB 12.4 gm/dL (11.4-16.0); Lymphocytes # (A) 1.9 k/uL (1.0-4.8); Lymphocytes % (A) 34 %; MCH 30.5 pg (25.0-35.0); MCHC 32.2 g/dL (31.0-37.0); MCV 94.9 fL (80.0-100.0); Mean Platelet Volume 7.9; Monocytes # (A) 0.2 k/uL (0-1.0); Monocytes % (A) 3 %; Neutrophils # (A) 3.4 k/uL (1.3-7.7); Neutrophils % (A) 61 %; Platelet Count 137 k/uL (150-450); RBC 4.06 m/uL (3.80-5.40); WBC 5.6 k/uL (3.8-10.6)
[2018-05-30 13:28] LABS: Appearance,Urine Clear (Clear); Bacteria,Urine Rare /hpf; Bilirubin,Urine Negative (Negative); Blood,Urine Negative (Negative); Color,Urine Yellow; Glucose,Urine (UA) Negative (Negative); Ketones,Urine Negative (Negative); Leukocyte Esterase,Urine Negative (Negative); Mucus,Urine Rare /hpf; Nitrite,Urine Negative (Negative); PH, Urine 5.5 (5.0-8.0); Protein,Urine 1+ (Negative); RBC,Urine 3 /hpf (0-5); Specific Gravity,Urine 1.019 (1.001-1.035); Squamous Epithelial Cell,Urine 7 /hpf (0-4); Urobilinogen,Urine <2.0 mg/dL (<2.0); WBC,Urine 1 /hpf (0-5)
[2018-05-30 13:34] LABS: ALT 29 U/L (9-52); AST 24 U/L (14-36); C Reactive Protein <5.0 mg/L (<10.0)
[2018-05-30 14:34] LABS: Erythrocyte Sedimentation Rate 2 mm/hr (0-20)
== END | disposition home or self-care (01) ==
LOC: LABWHC1 12:34
PROVIDERS: ATTEND Internal Medicine Rheumatology
DX: M32.9 Systemic lupus erythematosus, unspecified (principal)
CPT/HCPCS: 36415; 81001; 82565; 84450; 84460; 85025; 85652; 86140

== ENCOUNTER → 2018-07-19 | Outpatient (CLI) | payer MEDICARE, OTHER | END | disposition home or self-care (01) | LOC: LABWHC1 11:10 | PROVIDERS: ATTEND Family Medicine | DX: J02.9 Acute pharyngitis, unspecified (principal) | CPT/HCPCS: 87081 ==

== ENCOUNTER → 2018-08-23 | Outpatient (CLI) | payer MEDICARE, OTHER | END | disposition home or self-care (01) | LOC: RADNMMAIN 09:09 | PROVIDERS: ATTEND Family Medicine | DX: Z53.9 Procedure and treatment not carried out, unspecified reason (principal) ==

== ENCOUNTER → 2018-08-25 | Outpatient (CLI) | payer MEDICARE, OTHER ==
[2018-08-25 10:53] LABS: Basophils % (A) 0 %; Eosinophils % (A) 1 %; HCT 38.3 % (34.0-46.0); HGB 12.2 gm/dL (11.4-16.0); Lymphocytes # (A) 1.5 k/uL (1.0-4.8); Lymphocytes % (A) 29 %; MCH 31.1 pg (25.0-35.0); MCHC 31.9 g/dL (31.0-37.0); MCV 97.5 fL (80.0-100.0); Mean Platelet Volume 8.4; Monocytes # (A) 0.2 k/uL (0-1.0); Monocytes % (A) 3 %; Neutrophils # (A) 3.5 k/uL (1.3-7.7); Neutrophils % (A) 66 %; Platelet Count 128 k/uL (150-450); RBC 3.92 m/uL (3.80-5.40); RDW 12.4 % (11.5-15.5); WBC 5.3 k/uL (3.8-10.6)
[2018-08-25 10:59] LABS: Appearance,Urine Clear (Clear); Bilirubin,Urine Negative (Negative); Blood,Urine Negative (Negative); Color,Urine Yellow; Glucose,Urine (UA) Negative (Negative); Hyaline Casts,Urine 1 /lpf (0-2); Ketones,Urine Negative (Negative); Leukocyte Esterase,Urine Negative (Negative); Mucus,Urine Rare /hpf; Nitrite,Urine Negative (Negative); PH, Urine 5.5 (5.0-8.0); Protein,Urine 1+ (Negative); RBC,Urine 1 /hpf (0-5); Specific Gravity,Urine 1.021 (1.001-1.035); Squamous Epithelial Cell,Urine 2 /hpf (0-4); Urobilinogen,Urine <2.0 mg/dL (<2.0); WBC,Urine 1 /hpf (0-5)
[2018-08-25 12:01] LABS: Erythrocyte Sedimentation Rate 4 mm/hr (0-20)
[2018-08-25 17:40] LABS: Parathyroid Hormone Intact 49.5 pg/mL (14.0-72.0)
[2018-08-25 17:57] LABS: Creatinine,Urine Random 171.6 mg/dL
[2018-08-25 19:41] LABS: Iron Saturation 32.71 (12.00-45.00)
[2018-08-25 19:50] LABS: ALT 19 U/L (8-44); AST 26 U/L (13-35); C Reactive Protein <0.4 mg/dL (0.0-0.8); Carbon Dioxide 24.5 mmol/L (21.6-31.8); Chloride 106 mmol/L (96-109); Glucose 80 mg/dL (70-110); Magnesium 1.8 mg/dL (1.5-2.4); Phosphorus 3.4 mg/dL (2.4-5.1); Potassium 4.7 mmol/L (3.5-5.5); Sodium 139 mmol/L (135-145); Uric Acid 3.6 mg/dL (2.9-7.7); Vitamin D 25 Hydroxy 33.8 ng/mL (30.0-100.0)
[2018-08-25 19:54] LABS: Total Protein,Urine Random 21.7 mg/dL (0.0-13.5)
== END ==
LOC: LABWHC1 10:04
PROVIDERS: ATTEND Internal Medicine Nephrology
DX: D64.9 Anemia, unspecified (principal); E55.9 Vitamin D deficiency, unspecified; N25.81 Secondary hyperparathyroidism of renal origin; N05.1 Unspecified nephritic syndrome with focal and segmental glomerular lesions; N39.0 Urinary tract infection, site not specified; M10.9 Gout, unspecified; M32.9 Systemic lupus erythematosus, unspecified
CPT/HCPCS: 36415; 80048; 81001; 82040; 82306; 82570; 82728; 83540; 83550; 83735; 83970; 84100; 84156; 84450; 84460; 84550; 85025; 85652; 86140

== ENCOUNTER → 2019-03-30 | Outpatient (CLI) | payer MEDICARE, OTHER ==
[2019-03-30 11:17] LABS: Basophils % (A) 0 %; Eosinophils % (A) 1 %; HGB 12.5 gm/dL (11.4-16.0); Lymphocytes # (A) 1.3 k/uL (1.0-4.8); Lymphocytes % (A) 15 %; MCH 30.2 pg (25.0-35.0); MCHC 31.3 g/dL (31.0-37.0); MCV 96.4 fL (80.0-100.0); Mean Platelet Volume 8.2; Monocytes # (A) 0.3 k/uL (0-1.0); Monocytes % (A) 3 %; Neutrophils % (A) 80 %; Platelet Count 137 k/uL (150-450); RBC 4.14 m/uL (3.80-5.40); RDW 12.3 % (11.5-15.5); WBC 8.7 k/uL (3.8-10.6)
[2019-03-30 11:21] LABS: Appearance,Urine Clear (Clear); Bilirubin,Urine Negative (Negative); Blood,Urine Negative (Negative); Color,Urine Yellow; Glucose,Urine (UA) Negative (Negative); Ketones,Urine Negative (Negative); Leukocyte Esterase,Urine Negative (Negative); Nitrite,Urine Negative (Negative); PH, Urine 5.5 (5.0-8.0); Protein,Urine Negative (Negative); Specific Gravity,Urine 1.022 (1.001-1.035); Urobilinogen,Urine <2.0 mg/dL (<2.0)
[2019-03-30 14:21] LABS: Erythrocyte Sedimentation Rate 4 mm/hr (0-20)
[2019-03-30 18:12] LABS: DNA Double-Stranded NEGATIVE (NEGATIVE)
[2019-03-30 19:40] LABS: ALT 16 U/L (8-44); AST 26 U/L (13-35); C Reactive Protein <0.4 mg/dL (0.0-0.8)
[2019-03-31 13:00] LABS: Complement C3 74.4 mg/dL (80.0-207.0)
== END ==
LOC: LABWHC1 10:22
PROVIDERS: ATTEND Internal Medicine Rheumatology
DX: M32.9 Systemic lupus erythematosus, unspecified (principal)
CPT/HCPCS: 36415; 81003; 82565; 84450; 84460; 85025; 85652; 86140; 86160; 86225

== ENCOUNTER → 2019-07-26 | Outpatient (CLI) | payer MEDICARE, OTHER ==
[2019-07-26 13:17] LABS: Basophils % (A) 0 %; Eosinophils % (A) 0 %; HCT 35.2 % (34.0-46.0); HGB 11.8 gm/dL (11.4-16.0); Lymphocytes # (A) 1.4 k/uL (1.0-4.8); Lymphocytes % (A) 17 %; MCH 31.4 pg (25.0-35.0); MCHC 33.7 g/dL (31.0-37.0); MCV 93.1 fL (80.0-100.0); Mean Platelet Volume 7.2; Monocytes # (A) 0.2 k/uL (0-1.0); Monocytes % (A) 2 %; Neutrophils # (A) 6.6 k/uL (1.3-7.7); Neutrophils % (A) 80 %; Platelet Count 166 k/uL (150-450); RBC 3.78 m/uL (3.80-5.40); RDW 11.7 % (11.5-15.5); WBC 8.3 k/uL (3.8-10.6)
[2019-07-26 13:41] LABS: Appearance,Urine Clear (Clear); Bacteria,Urine Rare /hpf; Bilirubin,Urine Negative (Negative); Blood,Urine Negative (Negative); Color,Urine Yellow; Glucose,Urine (UA) Negative (Negative); Ketones,Urine Negative (Negative); Leukocyte Esterase,Urine Negative (Negative); Mucus,Urine Occasional /hpf; Nitrite,Urine Negative (Negative); PH, Urine 5.5 (5.0-8.0); Protein,Urine 1+ (Negative); RBC,Urine 1 /hpf (0-5); Specific Gravity,Urine 1.025 (1.001-1.035); Squamous Epithelial Cell,Urine 3 /hpf (0-4); Urobilinogen,Urine <2.0 mg/dL (<2.0); WBC,Urine 2 /hpf (0-5)
[2019-07-26 15:34] LABS: Erythrocyte Sedimentation Rate 5 mm/hr (0-20)
[2019-07-26 20:53] LABS: DNA Double-Stranded NEGATIVE (NEGATIVE)
[2019-07-26 21:03] LABS: ALT 18 U/L (8-44); AST 24 U/L (13-35); African American GFR (CKD) 110.7 (60.0-200.0); C Reactive Protein <0.4 mg/dL (0.0-0.8)
== END | disposition home or self-care (01) ==
LOC: LABWHC1 12:15 → EDSTATUS 12:45
PROVIDERS: ATTEND Internal Medicine Rheumatology
DX: M32.9 Systemic lupus erythematosus, unspecified (principal)
CPT/HCPCS: 36415; 81001; 82565; 84450; 84460; 85025; 85652; 86140; 86160; 86225

== ENCOUNTER → 2019-09-17 | Outpatient (CLI) | payer MEDICARE, OTHER ==
[2019-09-17 15:57] LABS: Appearance,Urine Clear (Clear); Bilirubin,Urine Negative (Negative); Blood,Urine Negative (Negative); Color,Urine Yellow; Glucose,Urine (UA) Negative (Negative); Ketones,Urine Negative (Negative); Leukocyte Esterase,Urine Negative (Negative); Nitrite,Urine Negative (Negative); PH, Urine 5.5 (5.0-8.0); Protein,Urine Trace (Negative); Specific Gravity,Urine 1.019 (1.001-1.035); Urobilinogen,Urine <2.0 mg/dL (<2.0)
[2019-09-17 16:13] LABS: Basophils % (A) 0 %; Eosinophils % (A) 1 %; HCT 38.2 % (34.0-46.0); HGB 12.5 gm/dL (11.4-16.0); Lymphocytes # (A) 1.6 k/uL (1.0-4.8); Lymphocytes % (A) 32 %; MCH 31.3 pg (25.0-35.0); MCHC 32.7 g/dL (31.0-37.0); MCV 95.7 fL (80.0-100.0); Monocytes # (A) 0.2 k/uL (0-1.0); Monocytes % (A) 4 %; Neutrophils # (A) 3.2 k/uL (1.3-7.7); Neutrophils % (A) 62 %; Platelet Count 160 k/uL (150-450); RBC 3.99 m/uL (3.80-5.40); RDW 11.8 % (11.5-15.5); WBC 5.2 k/uL (3.8-10.6)
[2019-09-18 01:53] LABS: Creatinine,Urine Random 151.6 mg/dL
[2019-09-18 01:55] LABS: Total Protein,Urine Random 17.6 mg/dL (0.0-13.5)
[2019-09-18 02:14] LABS: % Iron Saturation 11.63 (12.00-45.00); African American GFR (CKD) 110.7 (60.0-200.0); Albumin 4.5 g/dL (3.80-4.90); Anion Gap 9.3 mmol/L (4.00-12.00); BUN/Creat Ratio 13.75 Ratio (12.00-20.00); Calcium 8.8 mg/dL (8.7-10.3); Carbon Dioxide 25.7 mmol/L (21.6-31.8); Ferritin 352.7 ng/mL (10.0-291.0); Magnesium 1.8 mg/dL (1.5-2.4); Phosphorus 3.5 mg/dL (2.4-5.1); Potassium 4.4 mmol/L (3.5-5.5); Uric Acid 3.5 mg/dL (2.9-7.7)
== END | disposition home or self-care (01) ==
LOC: LABWHC1 14:57
PROVIDERS: ATTEND Internal Medicine Nephrology
DX: N39.0 Urinary tract infection, site not specified (principal); M10.9 Gout, unspecified; N05.1 Unspecified nephritic syndrome with focal and segmental glomerular lesions; E55.9 Vitamin D deficiency, unspecified; D64.9 Anemia, unspecified; N25.81 Secondary hyperparathyroidism of renal origin; R80.9 Proteinuria, unspecified
CPT/HCPCS: 36415; 80048; 81003; 82040; 82306; 82570; 82728; 83540; 83550; 83735; 83970; 84100; 84156; 84550; 85025

== ENCOUNTER 2019-10-04 11:43 | Inpatient (IN) | payer MEDICARE, OTHER ==
[2019-10-04] MEDS ORDERED: SODIUM CHLORIDE 0.9% 500 ML 1,000 ML IV STA (12:41)
[2019-10-04] MEDS ORDERED: IPRATROPIUM-ALBUTEROL 3 ML NEB INHALATION STA (12:41)
[2019-10-04] MEDS ORDERED: ACETAMINOPHEN TAB 325 MG TAB PO STA (12:44)
[2019-10-04] MEDS ORDERED: diphenhydrAMINE 50 MG/ML 1 ML VIAL IVP STA (12:44)
[2019-10-04] MEDS ORDERED: METOCLOPRAMIDE 5 MG/ML 2 ML VIAL IVP STA (12:44)
[2019-10-04 13:21] LABS: Basophils % (A) 0 %; Eosinophils % (A) 0 %; HCT 37.2 % (34.0-46.0); HGB 12.4 gm/dL (11.4-16.0); Lymphocytes # (A) 0.5 k/uL (1.0-4.8); Lymphocytes % (A) 9 %; MCH 31.6 pg (25.0-35.0); MCHC 33.4 g/dL (31.0-37.0); MCV 94.7 fL (80.0-100.0); Mean Platelet Volume 8.1; Monocytes # (A) 0.2 k/uL (0-1.0); Monocytes % (A) 3 %; Neutrophils # (A) 4.8 k/uL (1.3-7.7); Neutrophils % (A) 87 %; Platelet Count 129 k/uL (150-450); RBC 3.93 m/uL (3.80-5.40); RDW 11.6 % (11.5-15.5); WBC 5.5 k/uL (3.8-10.6)
[2019-10-04 13:28] LABS: ALT 23 U/L (9-52); AST 28 U/L (14-36); African American GFR (CKD) >90 (>60 ml/min/1.73 sqM); Albumin 4.3 g/dL (3.5-5.0); Alkaline Phosphatase 41 U/L (38-126); Anion Gap 10 mmol/L; Blood Urea Nitrogen 13 mg/dL (7-17); Calcium 8.9 mg/dL (8.4-10.2); Carbon Dioxide 24 mmol/L (22-30); Chloride 104 mmol/L (98-107); Glucose 97 mg/dL (74-99); Non-African American GFR(CKD) >90 (>60 ml/min/1.73 sqM); Potassium 4.3 mmol/L (3.5-5.1); Sodium 138 mmol/L (137-145); Total Bilirubin 0.4 mg/dL (0.2-1.3); Total Protein 6.9 g/dL (6.3-8.2)
[2019-10-04 13:36] LABS: Appearance,Urine Cloudy (Clear); Bacteria,Urine Rare /hpf; Bilirubin,Urine Negative (Negative); Blood,Urine Moderate (Negative); Color,Urine Yellow; Glucose,Urine (UA) Negative (Negative); Ketones,Urine 1+ (Negative); Leukocyte Esterase,Urine Negative (Negative); Mucus,Urine Rare /hpf; Nitrite,Urine Negative (Negative); Protein,Urine Trace (Negative); RBC,Urine 4 /hpf (0-5); Specific Gravity,Urine 1.013 (1.001-1.035); Squamous Epithelial Cell,Urine 13 /hpf (0-4); Urobilinogen,Urine <2.0 mg/dL (<2.0); WBC,Urine 4 /hpf (0-5)
--- NOTE | 2019-10-04 13:48 | XR ---
EXAMINATION TYPE: XR chest 2V DATE OF EXAM: 10/04/2019 COMPARISON: 07/25/2015 HISTORY: Cough and congestion TECHNIQUE: Frontal and lateral views of the chest are obtained. FINDINGS: There is no focal air space opacity, pleural effusion, or pneumothorax seen. The cardiac silhouette size is within normal limits. The osseous structures are intact. Left axillary surgical clips. Cholecystectomy clips are also seen. IMPRESSION: No acute cardiopulmonary process.
--- NOTE | 2019-10-04 14:05 | CT ---
EXAMINATION TYPE: CT brain wo con DATE OF EXAM: 10/04/2019 COMPARISON: 11/29/2012 HISTORY: Headache and fever CT DLP: 950.6 mGycm. Automated Exposure Control for Dose Reduction was Utilized. TECHNIQUE: CT scan of the head is performed without contrast. FINDINGS: There is extensive spray artifact from the dense calvarium, limiting evaluation for subdur al hemorrhage. There is no acute intracranial hemorrhage, mass effect, or midline shift identified. The ventricles and sulci are within normal limits in size. The globes are intact. There is complex m ucosal thickening of the maxillary sinuses, left greater than right without intensity in the left. Th is is new from the prior of 11/29/2012. Moderate mucosal thickening is also seen in the ethmoid sinuse s and mild of the sphenoid sinuses. Scant mucosal thickening of the left frontal sinus. Mastoid air c ells are well aerated. IMPRESSION: 1. No acute intracranial hemorrhage, mass effect, or midline shift is seen. 2. Interval development of complex pansinusitis. Hypodensity in the left maxillary sinus can indicate hemorrhage or atypical infection such as fungal disease.
[2019-10-04] MEDS ORDERED: MORPHINE SULFATE 4 MG/ML SYRINGE IVP STA (14:40)
[2019-10-04 14:47] LABS: T4, Free (Free Thyroxine) 1.42 ng/dL (0.78-2.19)
[2019-10-04] MEDS ORDERED: HYDROmorphone 1 MG/ML 1 ML SYRINGE IVP STA (15:50)
--- NOTE | 2019-10-04 15:52 | ED ---
General Adult HPI - General Chief complaint: Upper Respiratory Infection Stated complaint: Poss Pnuemonia, Abd Pain Source: patient Mode of arrival: ambulatory Limitations: no limitations - History of Present Illness Initial comments: The patient is a 34-year-old female past medical history of lupus who presents emergency room and from Dr. Sevilla's office. Dr. ya does call to notify that the patient is coming. Patient states that she's had a cough, fevers and a headache since the . She has been seen Dr. Sevilla in office was prescribed antibiotics. She finished approximately 2 weeks ago. States that she was feeling mildly better however her symptoms worsens over the past 2 days. She reports to fevers and chills at home. Nausea without vomiting. Admits to a headache. Denies vision changes, neck stiffness or photophobia. Denies any blunt head trauma. Admits to sinus pressure and congestion. Also has a sore scratchy throat and left ear pain. Denies any sick contacts or recent travel. She denies any chest pain or shortness of breath. Does admit to a cough without hemoptysis. No abdominal pain or changes in her bowel or bladder habits. She d oes have a history of lupus and is on CellCept, methotrexate and Plaquenil. Dr. Sevilla did complete blood work yesterday. She followed back up in office today because she wasn't feeling better. As the patient is significantly immunocompromised, Dr. Sevilla recommended the patient going to the emergency room for further evaluation - Related Data Home Medications Medication Instructions Recorded Confirmed ALPRAZolam [Xanax] 2 mg PO TID PRN 11/12/14 10/04/19 predniSONE [Prednisone] 5 mg PO QAM 11/12/14 10/04/19 HYDROcodone/APAP 10-325MG [[place] 1 tab PO Q4HR PRN 02/18/17 10/04/19 10-325] Hydroxychloroquine Sulfate 200 mg PO BID 02/18/17 10/04/19 [Plaquenil] Lisinopril 2.5 mg PO HS 02/18/17 10/04/19 Methotrexate Sodium [Methotrexate] 15 mg PO Th 02/18/17 10/04/19 Cholecalciferol (Vitamin D3) 2,000 unit PO HS 10/04/19 10/04/19 [Vitamin D3] Duet Dha Balanced 1 tab PO HS 10/04/19 10/04/19 Levofloxacin [Levaquin] 750 mg PO DAILY 10/04/19 10/04/19 Ondansetron [Zofran] 4 mg PO BID PRN 10/04/19 10/04/19 methylPREDNISolone Dose Pack See Taper PO DAILY 10/04/19 10/04/19 [Medrol Dose Pack] Previous Rx's Medication Instructions Recorded Mycophenolate Mofetil [Cellcept] 1,000 mg PO BID tab 07/28/15 Omeprazole [PriLOSEC] 20 mg PO AC-[id number] capsule. 07/28/15 Allergies Allergy/AdvReac Type Severity Reaction Status Date / Time rituximab [From Rituxan] Allergy Anaphylaxis Verified 10/04/19 14:36 amlodipine besylate AdvReac Swelling Verified 10/04/19 14:36 [From Norvasc] metoclopramide [From Reglan] AdvReac Abdominal Verified 10/04/19 20:07 Pain Review of Systems ROS Statement: Those systems with pertinent positive or pertinent negative responses have been documented in the HPI. ROS Other: All systems not noted in ROS Statement are negative. Past Medical History Past Medical History: Cancer, Fibromyalgia, GERD/Reflux, Hypertension, Pneumonia, Renal Disease, Rheumatoid Arthritis (RA) Additional Past Medical History / Comment(s): Systemic Lupus, lupus nephritis with acute kidney injury 2012, Raynauds, chronic anemia requiring iron infusions and blood infusions, basal cell carcinoma right lower leg, hiatal hernia, migraines. History of Any Multi-Drug Resistant Organisms: None Reported Past Surgical History: Cholecystectomy Additional Past Surgical History / Comment(s): L shoulder bone shaved, lymph nodes removedx3 from bilateral axilla-benign, colonoscopy Past Anesthesia/Blood Transfusion Reactions: No Reported Reaction Past Psychological History: Anxiety, Depression Smoking Status: Current every day smoker Past Alcohol Use History: Occasional Past Drug Use History: None Reported - Past Family History Sister(s) Additional Family Medical History / Comment(s): pt's 1/2 sister had lupus Mother Family Medical History: Rheumatoid Arthritis (RA) Additional Family Medical History / Comment(s): hep c. maternal grandmother had dementia Father History Unknown: Yes Additional Family Medical History / Comment(s): pt's dad when she was 2 General Exam Limitations: no limitations General appearance: alert, in no apparent distress Head exam: Present: atraumatic, normocephalic, normal inspection Eye exam: Present: normal appearance, PERRL, EOMI. Absent: scleral icterus, conjunctival injection, periorbital swelling ENT exam: Present: mucous membranes moist, TM's normal bilaterally, normal external ear exam, other (tenderness to palpation of the frontal and maxillary sinuses) Neck exam: Present: normal inspection. Absent: tenderness, meningismus, lymphadenopathy Respiratory exam: Present: normal lung sounds bilaterally. Absent: respiratory distress, wheezes, rales, rhonchi, stridor Cardiovascular Exam: Present: regular rate, normal rhythm, normal heart sounds. Absent: systolic murmur, diastolic murmur, rubs, gallop, clicks GI/Abdominal exam: Present: soft, normal bowel sounds. Absent: distended, tenderness, guarding, rebound, rigid Extremities exam: Present: normal inspection, full ROM, normal capillary refill. Absent: tenderness, pedal edema, joint swelling, calf tenderness Back exam: Present: normal inspection Neurological exam: Present: alert, oriented X3, CN II-XII intact Psychiatric exam: Present: normal affect, normal mood Skin exam: Present: warm, dry, intact, normal color. Absent: rash Course Vital Signs 10/04/19 10/04/19 10/04/19 11:44 12:28 13:02 Temperature 97.9 F Pulse Rate 95 84 Respiratory 16 16 Rate Blood Pressure 117/77 O2 Sat by Pulse 96 Oximetry 10/04/19 10/04/19 10/04/19 13:07 14:06 16:02 Temperature 98.5 F Pulse Rate 87 82 76 Respiratory 18 18 Rate Blood Pressure 106/62 104/58 O2 Sat by Pulse 100 98 Oximetry 10/04/19 17:55 Temperature 98 F Pulse Rate 61 Respiratory 18 Rate Blood Pressure 97/56 O2 Sat by Pulse 97 Oximetry Medical Decision Making - Medical Decision Making Upon arrival the patient was placed into room 10. Ferrous her physical exam is performed. Peripheral IV is established. The patient is given a liter bolus of normal saline. She is also given 10 mg of Reglan, 25 mg of Benadryl and 650 mg of Tylenol. She is provided with a DuoNeb breathing treatment. I did recommend laboratory studies, CT of her brain and a chest x-ray. Laboratory studies show a platelet count of 129, urine shows 1+ ketones, rare bacteria and 13 squamous epithelial cells. Influenza A and B are negative. CT of the patient's brain demonstrates complex pansinusitis. Hypodensity in the left maxillary sinus which could indicate hemorrhage or atypical infection such as fungal disease. No mass effect or midline shift. Chest x-ray demonstrates no acute cardiopulmonary process. I reevaluated the patient. She Still continues to have pain. I then ordered form of morphine. I called and discussed the case with Dr. Sevilla who agreed to hospital admission. I will place ENT and infectious disease on consult. I started the patient on Zosyn. I called and discussed the case with pharmacy who recommended I place the patient on Eraxis. The patient remained in stable condition and was transported to the floor - Lab Data Result diagrams: 10/08/19 06:13 10/08/19 06:13 Lab Results 10/04/19 10/04/19 10/04/19 Range/Units 13:00 13:00 13:00 WBC (3.8-10.6) k/uL RBC (3.80-5.40) m/uL Hgb (11.4-16.0) gm/dL Hct (34.0-46.0) % MCV (80.0-100.0) fL MCH (25.0-35.0) pg MCHC (31.0-37.0) g/dL RDW (11.5-15.5) % Plt Count (150-450) k/uL Neutrophils % % Lymphocytes % % Monocytes % % Eosinophils % % Basophils % % Neutrophils # (1.3-7.7) k/uL Lymphocytes # (1.0-4.8) k/uL Monocytes # (0-1.0) k/uL Eosinophils # (0-0.7) k/uL Basophils # (0-0.2) k/uL Sodium 138 (137-145) mmol/L Potassium 4.3 (3.5-5.1) mmol/L Chloride 104 (98-107) mmol/L Carbon Dioxide 24 (22-30) mmol/L Anion Gap 10 mmol/L BUN 13 (7-17) mg/dL Creatinine 0.71 (0.52-1.04) mg/dL Est GFR (CKD-EPI)AfAm >90 (>60 ml/min/1.73 sqM) Est GFR (CKD-EPI)NonAf >90 (>60 ml/min/1.73 sqM) Glucose 97 (74-99) mg/dL Plasma Lactic Acid Tristin (0.7-2.0) mmol/L Calcium 8.9 (8.4-10.2) mg/dL Total Bilirubin 0.4 (0.2-1.3) mg/dL AST 28 (14-36) U/L ALT 23 (9-52) U/L Alkaline Phosphatase 41 (38-126) U/L Total Protein 6.9 (6.3-8.2) g/dL Albumin 4.3 (3.5-5.0) g/dL TSH 0.232 L (0.465-4.680) mIU/L Free T4 1.42 (0.78-2.19) ng/dL Cortisol 5 ug/dL Urine Color Yellow Urine Appearance Cloudy H (Clear) Urine pH 6.0 (5.0-8.0) Ur Specific [place] 1.013 (1.001-1.035) Urine Protein Trace H (Negative) Urine Glucose (UA) Negative (Negative) Urine Ketones 1+ H (Negative) Urine Blood Moderate H (Negative) Urine Nitrite Negative (Negative) Urine Bilirubin Negative (Negative) Urine Urobilinogen <2.0 (<2.0) mg/dL Ur Leukocyte Esterase Negative (Negative) Urine RBC 4 (0-5) /hpf Urine WBC 4 (0-5) /hpf Ur Squamous Epith Cells 13 H (0-4) /hpf Urine Bacteria Rare H (None) /hpf Urine Mucus Rare H (None) /hpf Urine HCG, Qual (Not Detectd) Influenza Type A RNA Not Detected (Not Detectd) Influenza Type B (PCR) Not Detected (Not Detectd) 10/04/19 10/04/19 10/04/19 Range/Units 13:00 13:00 13:00 WBC 5.5 (3.8-10.6) k/uL RBC 3.93 (3.80-5.40) m/uL Hgb 12.4 (11.4-16.0) gm/dL Hct 37.2 (34.0-46.0) % MCV 94.7 (80.0-100.0) fL MCH 31.6 (25.0-35.0) pg MCHC 33.4 (31.0-37.0) g/dL RDW 11.6 (11.5-15.5) % Plt Count 129 L (150-450) k/uL Neutrophils % 87 % Lymphocytes % 9 % Monocytes % 3 % Eosinophils % 0 % Basophils % 0 % Neutrophils # 4.8 (1.3-7.7) k/uL Lymphocytes # 0.5 L (1.0-4.8) k/uL Monocytes # 0.2 (0-1.0) k/uL Eosinophils # 0.0 (0-0.7) k/uL Basophils # 0.0 (0-0.2) k/uL Sodium (137-145) mmol/L Potassium (3.5-5.1) mmol/L Chloride (98-107) mmol/L Carbon Dioxide (22-30) mmol/L Anion Gap mmol/L BUN (7-17) mg/dL Creatinine (0.52-1.04) mg/dL Est GFR (CKD-EPI)AfAm (>60 ml/min/1.73 sqM) Est GFR (CKD-EPI)NonAf (>60 ml/min/1.73 sqM) Glucose (74-99) mg/dL Plasma Lactic Acid [place] 0.5 L (0.7-2.0) mmol/L Calcium (8.4-10.2) mg/dL Total Bilirubin (0.2-1.3) mg/dL AST (14-36) U/L ALT (9-52) U/L Alkaline Phosphatase (38-126) U/L Total Protein (6.3-8.2) g/dL Albumin (3.5-5.0) g/dL TSH (0.465-4.680) mIU/L Free T4 (0.78-2.19) ng/dL Cortisol ug/dL Urine Color Urine Appearance (Clear) Urine pH (5.0-8.0) Ur Specific [place] (1.001-1.035) Urine Protein (Negative) Urine Glucose (UA) (Negative) Urine Ketones (Negative) Urine Blood (Negative) Urine Nitrite (Negative) Urine Bilirubin (Negative) Urine Urobilinogen (<2.0) mg/dL Ur Leukocyte Esterase (Negative) Urine RBC (0-5) /hpf Urine WBC (0-5) /hpf Ur Squamous Epith Cells (0-4) /hpf Urine Bacteria (None) /hpf Urine Mucus (None) /hpf Urine HCG, Qual Not Detected (Not Detectd) Influenza Type A RNA (Not Detectd) Influenza Type B (PCR) (Not Detectd) 10/05/19 10/05/19 Range/Units 06:19 06:19 WBC 3.9 (3.8-10.6) k/uL RBC 3.45 L (3.80-5.40) m/uL Hgb 11.1 L (11.4-16.0) gm/dL Hct 32.9 L (34.0-46.0) % MCV 95.5 (80.0-100.0) fL MCH 32.1 (25.0-35.0) pg MCHC 33.6 (31.0-37.0) g/dL RDW 11.6 (11.5-15.5) % Plt Count 117 L (150-450) k/uL Neutrophils % 51 % Lymphocytes % 42 % Monocytes % 5 % Eosinophils % 1 % Basophils % 0 % Neutrophils # 2.0 (1.3-7.7) k/uL Lymphocytes # 1.6 (1.0-4.8) k/uL Monocytes # 0.2 (0-1.0) k/uL Eosinophils # 0.0 (0-0.7) k/uL Basophils # 0.0 (0-0.2) k/uL Sodium 139 (137-145) mmol/L Potassium 3.8 (3.5-5.1) mmol/L Chloride 107 (98-107) mmol/L Carbon Dioxide 26 (22-30) mmol/L Anion Gap 6 mmol/L BUN 12 (7-17) mg/dL Creatinine 0.78 (0.52-1.04) mg/dL Est GFR (CKD-EPI)AfAm >90 (>60 ml/min/1.73 sqM) Est GFR (CKD-EPI)NonAf >90 (>60 ml/min/1.73 sqM) Glucose 88 (74-99) mg/dL Plasma Lactic Acid Trist[place] (0.7-2.0) mmol/L Calcium 7.8 L (8.4-10.2) mg/dL Total Bilirubin (0.2-1.3) mg/dL AST (14-36) U/L ALT (9-52) U/L Alkaline Phosphatase (38-126) U/L Total Protein (6.3-8.2) g/dL Albumin (3.5-5.0) g/dL TSH (0.465-4.680) mIU/L Free T4 (0.78-2.19) ng/dL Cortisol ug/dL Urine Color Urine Appearance (Clear) Urine pH (5.0-8.0) Ur Specific [place] (1.001-1.035) Urine Protein (Negative) Urine Glucose (UA) (Negative) Urine Ketones (Negative) Urine Blood (Negative) Urine Nitrite (Negative) Urine Bilirubin (Negative) Urine Urobilinogen (<2.0) mg/dL Ur Leukocyte Esterase (Negative) Urine RBC (0-5) /hpf Urine WBC (0-5) /hpf Ur Squamous Epith Cells (0-4) /hpf Urine Bacteria (None) /hpf Urine Mucus (None) /hpf Urine HCG, Qual (Not Detectd) Influenza Type A RNA (Not Detectd) Influenza Type B (PCR) (Not Detectd) Disposition Clinical Impression: Acute sinusitis, Lupus Disposition: ADMITTED IP TO THIS HOSP Condition: Stable Is patient prescribed a controlled substance at d/c from ED?: No Decision to Admit Reason: Admit from EC Decision Date: 10/04/19 Decision Time: 15:52
[2019-10-04] MEDS ORDERED: NALOXONE 0.4 MG/ML 1 ML VIAL IV PRN (16:22)
[2019-10-04] MEDS ORDERED: ANIDULAFUNGIN 200 MG in SODIUM CHLORIDE 0.9% 200 ML IVPB ONE (16:38)
[2019-10-04] MEDS: PIPERACILLIN-TAZOBACTAM 3.375 GM in SODIUM CHLORIDE 0.9% 100 ML IVPB SCH ×2 (17:21→23:50)
[2019-10-04] MEDS: HYDROmorphone 1 MG/ML 1 ML SYRINGE IVP PRN (20:02)
[2019-10-04] MEDS: MYCOPHENOLATE MOFETIL 500 MG TAB PO SCH (20:04)
[2019-10-04] MEDS: HYDROXYCHLOROQUINE SULFATE 200 MG TAB PO SCH (20:04)
[2019-10-04] MEDS: NICOTINE 21MG/24HR PATCH TRANSDERM SCH (20:29)
[2019-10-04] MEDS: ALPRAZolam 1 MG TAB PO PRN (22:13)
[2019-10-04] MEDS: LISINOPRIL 2.5 MG TAB PO SCH (23:53)
[2019-10-05] MEDS: HYDROmorphone 1 MG/ML 1 ML SYRINGE IVP PRN ×7 (01:04→22:16)
[2019-10-05 06:45] LABS: Basophils % (A) 0 %; Eosinophils % (A) 1 %; HCT 32.9 % (34.0-46.0); HGB 11.1 gm/dL (11.4-16.0); Lymphocytes # (A) 1.6 k/uL (1.0-4.8); Lymphocytes % (A) 42 %; MCH 32.1 pg (25.0-35.0); MCHC 33.6 g/dL (31.0-37.0); MCV 95.5 fL (80.0-100.0); Mean Platelet Volume 8.8; Monocytes # (A) 0.2 k/uL (0-1.0); Monocytes % (A) 5 %; Neutrophils % (A) 51 %; Platelet Count 117 k/uL (150-450); RBC 3.45 m/uL (3.80-5.40); RDW 11.6 % (11.5-15.5); WBC 3.9 k/uL (3.8-10.6)
[2019-10-05 07:06] LABS: African American GFR (CKD) >90 (>60 ml/min/1.73 sqM); Anion Gap 6 mmol/L; Blood Urea Nitrogen 12 mg/dL (7-17); Calcium 7.8 mg/dL (8.4-10.2); Carbon Dioxide 26 mmol/L (22-30); Chloride 107 mmol/L (98-107); Glucose 88 mg/dL (74-99); Non-African American GFR(CKD) >90 (>60 ml/min/1.73 sqM); Potassium 3.8 mmol/L (3.5-5.1); Sodium 139 mmol/L (137-145)
[2019-10-05] MEDS: NICOTINE 21MG/24HR PATCH TRANSDERM SCH (08:07)
[2019-10-05] MEDS: PANTOPRAZOLE 40 MG TABLET PO SCH (08:09)
[2019-10-05] MEDS: PIPERACILLIN-TAZOBACTAM 3.375 GM in SODIUM CHLORIDE 0.9% 100 ML IVPB SCH ×3 (08:10→23:21)
[2019-10-05] MEDS: HYDROXYCHLOROQUINE SULFATE 200 MG TAB PO SCH ×2 (08:10→20:41)
[2019-10-05] MEDS: MYCOPHENOLATE MOFETIL 500 MG TAB PO SCH ×2 (08:11→20:41)
[2019-10-05] MEDS: ONDANSETRON 4 MG TAB PO PRN (08:12)
[2019-10-05] MEDS ORDERED: ANIDULAFUNGIN 100 MG in SODIUM CHLORIDE 0.9% 100 ML IVPB SCH (17:15)
[2019-10-05] MEDS: ALPRAZolam 1 MG TAB PO PRN (17:21)
[2019-10-05] MEDS: LISINOPRIL 2.5 MG TAB PO SCH (20:40)
--- NOTE | 2019-10-05 20:45 | HP ---
HISTORY AND PHYSICAL CHIEF COMPLAINT: Worsening fever, chills, cough, congestion, shortness of breath, sinus pressure and headache. HISTORY OF PRESENT ILLNESS: This is another admission for this 34-year-old white female who has systemic lupus erythematosus. She developed URI and came to the office a day or two before admission. It was felt that this was probably viral. However, because she is severely immunologically suppressed, she was started on Levaquin 750 mg once a day. She was told to come back in the next day. She came in and she was worse. She was complaining of increasing headache, fever, chills, facial pain, congestion and shortness of breath. She had also been given a Medrol Dosepak. Because of her disease and her immunosuppression, it was felt safest to send her to the hospital for further testing, including appropriate cultures and infectious disease consult. She did get the flu vaccine. REVIEW OF SYSTEMS: She has not had any change in vision or the hearing, confusion, focal neurologic developments, nuchal rigidity, hemoptysis. She has had anterior chest pain. She has never had heart disease. She has had some vague abdominal pain but no vomiting, hematemesis, melena, hematochezia, jaundice, dysuria, frequency, urgency, etc. Past medical history, family history, and personal and social histories reveal that she cannot take amlodipine. She is currently on: 1. Levaquin 750 mg once a day for 2 days. 2. Medrol Dosepak. 3. CellCept 500 mg 2 tablets twice a day. 4. Plaquenil 200 mg one tablet twice a day. 5. Prednisone 5 mg every day. 6. Vicodin 10 q.4 p.r.n. 7. Methotrexate 2.5 mg 6 tablets once a week. 8. Lisinopril 2.5 mg once a day. 9. Zofran p.r.n. 10.Xanax 2 mg t.i.d. p.r.n. 11.Prilosec 20 mg once a day. She has had no pregnancies. She has had to receive iron infusions for anemia in the past. 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 She had a sister with lupus who at age 19 of the disease. She does smoke. PHYSICAL EXAMINATION: Blood pressure 112/80 with a pulse of 106, respirations of 35 and temperature 99. In general she appeared to be chronically ill. She is slender. Skin is dry. Head, ears, eyes, nose, mouth and throat demonstrate mild conjunctivitis bilaterally. Pupils are equally round. Gaze is conjugate. Nose is somewhat congested. Ears are clear. Throat is slightly inflamed. Hydration is good. Neck is supple. No neck masses. There is no neck vein distention. Chest demonstrates occasional rhonchi and a tight congested cough which is not productive. Cardiac exam demonstrates sinus tachycardia with no murmurs or extra sounds. Abdomen is flat, soft, nontender without visceromegaly or masses. Extremities are normal. There is no edema. There is no rash, petechiae, ecchymoses, etc. Neurologically she is intact. ADMITTING DIAGNOSES: She is admitted to the hospital with the diagnoses: 1. Probable viremia. 2. Systemic lupus erythematosus. 3. Immunosuppression. 4. Rule out sepsis. 5. Rule out pneumonitis. PLAN: 1. Bedrest. 2. IV fluids. 3. Appropriate cultures. 4. Infectious disease consult. 5. ENT consult because of opacity seen in the left maxillary sinus with a suggestion of a fungal process. MMODL / IJN: [id number] /
--- NOTE | 2019-10-05 20:45 | PN ---
PROGRESS NOTE CHIEF COMPLAINT: Viral septicemia. HISTORY OF PRESENT ILLNESS: This lady is feeling just about the same. She has been seen by Infectious Disease. ENT refuses to answer the consult. She is now coughing up purulent sputum. She is not short of breath and she has had no vomiting. PHYSICAL EXAMINATION: Head, ears, eyes, nose, mouth and throat are normal and the chest demonstrates occasional rales and rhonchi scattered throughout. Cardiac exam is normal sinus rhythm. Abdomen is soft. IMPRESSION: 1. Probable viremia. 2. Systemic lupus erythematosus. 3. Immunosuppression. PLAN: Continue with current program and wait for cultures while continuing antibiosis. MMODL / IJN: [id number] /
[2019-10-05] MEDS ORDERED: ACETAMINOPHEN TAB 325 MG TAB PO PRN (23:31)
[2019-10-06] MEDS: HYDROmorphone 1 MG/ML 1 ML SYRINGE IVP PRN ×8 (02:58→21:40)
[2019-10-06] MEDS: PANTOPRAZOLE 40 MG TABLET PO SCH (06:29)
[2019-10-06] MEDS: PIPERACILLIN-TAZOBACTAM 3.375 GM in SODIUM CHLORIDE 0.9% 100 ML IVPB SCH ×2 (07:49→16:17)
[2019-10-06] MEDS: ONDANSETRON 4 MG TAB PO PRN (07:49)
[2019-10-06] MEDS: MYCOPHENOLATE MOFETIL 500 MG TAB PO SCH ×2 (09:03→20:01)
[2019-10-06] MEDS: HYDROXYCHLOROQUINE SULFATE 200 MG TAB PO SCH ×2 (09:03→20:01)
[2019-10-06] MEDS: NICOTINE 21MG/24HR PATCH TRANSDERM SCH (09:03)
[2019-10-06] MEDS: ALPRAZolam 1 MG TAB PO PRN ×2 (09:11→18:54)
--- NOTE | 2019-10-06 11:51 | P.CONS ---
History of Present Illness - Reason for Consult Consult date: 10/05/19 - Chief Complaint Headache with cough - History of Present Illness 4-year-old woman who has a history of lupus and is on Imuran suppressive therapy with methotrexate CellCept and steroids who is him as control of her lupus over time. Natalya presents to hospital with head movement L for more than a week. She was seen in the outpatient setting was given a course of antibiotic therapy. Despite the antibiotic she continues to feel poorly. She has headache, sinus congestion, drainage, some cough without much sputum production. She's also had fever and chill and feels quite poorly overall. She is feeling slightly better at this time. She is overly feel better soon so that she can go home to be with her significant other and her puppy. She is full-time at home because of her medical issues and and has bonded strongly to the dog. Review of Systems HEENT:mild headache or acute visual change. Has sinus congestion but nomouth discomforts. Denies neck stiffness or pain. Denies significant oral cavity pain. Denies difficulty on swallowing. Lungs: Denies significant shortness of breath, cough, sputum production, or hemoptysis. Cardiovascular: Denies significant shortness of breath, chest pain, chest wall pain, orthopnea, dyspnea on exertion, syncope Gastrointestinal:Denies nausea, vomiting, diarrhea, constipation, hematemesis, melena, hematochezia. No no significant change of bowel habit noticed. Musculoskeletal: denies significant myalgias or arthralgias. No new joint swelling. Denies new back pain. Skin: Denies new rash or lesions. No new ulcers or wounds are related.. Neuro: Denies visual change. Denies any new onset weakness or difficulty with ambulation. Denies falls or seizures. Psychiatric:Denies anxiety or depression. Endocrine: has chronic fatigue, denies significant weight loss or weight gain. Past Medical History Past Medical History: Cancer, Fibromyalgia, GERD/Reflux, Hypertension, Pneumonia, Renal Disease, Rheumatoid Arthritis (RA) Additional Past Medical History / Comment(s): Systemic Lupus, lupus nephritis with acute kidney injury 2012, Raynauds, chronic anemia requiring iron infusions and blood infusions, basal cell carcinoma right lower leg, hiatal hernia, migraines. History of Any Multi-Drug Resistant Organisms: None Reported Past Surgical History: Cholecystectomy Additional Past Surgical History / Comment(s): L shoulder bone shaved, lymph nodes removedx3 from bilateral axilla-benign, colonoscopy, right ovary removed Past Anesthesia/Blood Transfusion Reactions: No Reported Reaction Past Psychological History: Anxiety, Depression Additional Psychological History / Comment(s): Single but lives with her boyfriend. 4-month-old puppy. No children. No travel. Disabled. no experience Smoking Status: Current every day smoker Past Alcohol Use History: Occasional Additional Past Alcohol Use History / Comment(s): started smoking at age 12 amokes 11/03-11/01 ppd. She denies any marijuana or street drug use. She drinks alcohol occasionally. She lives at home with fiance and stepchild. She is currently on disability. Past Drug Use History: None Reported - Past Family History Sister(s) Additional Family Medical History / Comment(s): pt's 1/2 sister had lupus Mother Family Medical History: Rheumatoid Arthritis (RA) Additional Family Medical History / Comment(s): hep c. maternal grandmother had dementia Father History Unknown: Yes Additional Family Medical History / Comment(s): pt's dad when she was 2 from staph infection/sepsis Medications and Allergies Home Medications and Allergies Comment(s): Current Medications Acetaminophen (Tylenol Tab) 325 mg PO Q6HR PRN PRN Reason: Fever and/ or Pain Last Admin: 10/06/19 00:01 Dose: 325 mg Documented by: Alprazolam (Xanax) 2 mg PO TID PRN PRN Reason: Anxiety Last Admin: 10/06/19 09:11 Dose: 2 mg Documented by: Hydromorphone HCl (Dilaudid) 2 mg IVP Q3HR PRN PRN Reason: Severe Pain Last Admin: 10/06/19 09:47 Dose: 2 mg Documented by: Hydroxychloroquine Sulfate (Plaquenil) 200 mg PO BID JUANY Last Admin: 10/06/19 09:03 Dose: 200 mg Documented by: Piperacillin Sod/Tazobactam (Sod 3.375 gm/ Sodium Chloride) 100 mls @ 25 mls/hr IVPB Q8HR JUANY; Protocol Last Admin: 10/06/19 07:49 Dose: 25 mls/hr Documented by: Anidulafungin 100 mg/ Sodium (Chloride) 130 mls @ 84 mls/hr IVPB DAILY@1400 J[facility]ANY Lisinopril (Zestril) 2.[address] [facility] Last Admin: 10/05/19 20:40 Dose: Not Given Documented by: Methotrexate (Methotrexate) [address] [facility] Mycophenolate Mofetil (Cellcept) 1,[address] [facility] Last Admin: 10/06/19 09:03 Dose: 1,000 mg Documented by: Naloxone HCl (Narcan) 0.2 mg IV Q2M PRN PRN Reason: Opioid Reversal Nicotine (Habitrol 21mg/24hr Patch) [address] [facility] Last Admin: 10/06/19 09:03 Dose: 1 patch Documented by: Ondansetron HCl (Zofran) 4 mg PO BID PRN PRN Reason: Nausea Last Admin: 10/06/19 07:49 Dose: 4 mg Documented by: Pantoprazole Sodium (Protonix) 40 mg [address] AC-BRKFST [facility] Last Admin: 10/06/19 06:29 Dose: 40 mg Documented by: Home Medications Medication Instructions Recorded Confirmed Type ALPRAZolam [Xanax] 2 mg PO TID PRN 11/12/14 10/04/19 History predniSONE [Prednisone] 5 mg PO QAM 11/12/14 10/04/19 History Mycophenolate Mofetil [Cellcept] 1,000 mg PO BID tab 07/28/15 10/04/19 Rx Omeprazole [PriLOSEC] 20 mg PO AC-BRKFST capsule. 07/28/15 10/04/19 Rx HYDROcodone/APAP 10-325MG [[place] 1 tab PO Q4HR PRN 02/18/17 10/04/19 History 10-325] Hydroxychloroquine Sulfate 200 mg PO BID 02/18/17 10/04/19 History [Plaquenil] Lisinopril 2.5 mg PO HS 02/18/17 10/04/19 History Methotrexate Sodium [Methotrexate] 15 mg PO Th 02/18/17 10/04/19 History Cholecalciferol (Vitamin D3) 2,000 unit PO HS 10/04/19 10/04/19 History [Vitamin D3] Duet Dha Balanced 1 tab PO HS 10/04/19 10/04/19 History Levofloxacin [Levaquin] 750 mg PO DAILY 10/04/19 10/04/19 History Ondansetron [Zofran] 4 mg PO BID PRN 10/04/19 10/04/19 History methylPREDNISolone Dose Pack See Taper PO DAILY 10/04/19 10/04/19 History [Medrol Dose Pack] Allergies Allergy/AdvReac Type Severity Reaction Status Date / Time rituximab [From Rituxan] Allergy Anaphylaxis Verified 10/04/19 14:36 amlodipine besylate AdvReac Swelling Verified 10/04/19 14:36 [From Norvasc] metoclopramide [From Reglan] AdvReac Abdominal Verified 10/04/19 20:07 Pain Physical Exam Vitals: Vital Signs Temp Pulse Resp BP Pulse Ox 10/06/19 09:41 67 18 10/06/19 08:36 98.2 F 67 18 119/74 99 10/06/19 07:55 73 18 108/67 100 10/06/19 01:32 99.6 F 10/05/19 23:00 100.4 F H 73 18 113/71 99 10/05/19 20:00 98.1 F 92 18 100/65 100 10/05/19 16:45 100.2 F H 10/05/19 12:30 99.7 F H 71 20 110/70 96 Intake and Output 10/05/19 10/06/19 10/06/19 22:59 06:59 14:59 Intake Total 250 580 Balance 250 580 Intake: Oral 250 580 Other: Voiding Method Toilet # Voids 2 1 HEENT: Anicteric conjunctiva are pink and moist nasal mucosa grossly intact without significant lesions, there is no thrush. There is some mild tenderness over the maxillary sinuses Neck: The neck is supple without significant lymphadenopathy or thyromegaly. Lungs: Good bilateral air entry without significant crackles or wheezing. There is no significant bronchial sounds. There is no egophony or dullness. Heart: Regular rate and rhythm with an audible S1-S2, no S3 no S4. There is no significant murmur click or rub, PMI was nondisplaced. Abdomen: Positive bowel sounds soft and nontender without palpable masses or organomegaly. There was no guarding or rebound. Extremities: The upper extremities have excellent pulses they are symmetric, no significant petechiae or telangiectasia. No splinter hemorrhages were noted. The lower extremities are free from significant edema. The peripheral pulses w ere 2+ and symmetric. Neuro: Awake alert oriented to person place and time. There are no acute new gross focal sensory motor deficits. Results CBC & Chem 7: 10/05/19 06:19 12 06:19 Labs: Microbiology - Last 24 Hours (Table) 10/04/19 16:57 Blood Culture - Preliminary Blood No Growth after 24 hours Microbiology 10/04/19 16:57 Blood Blood Culture - Preliminary No Growth after 24 hours Laboratory Results WBC 3.9 k/uL (3.8-10.6) 10/05/19 06:19 RBC 3.45 m/uL (3.80-5.40) L 10/05/19 06:19 Hgb 11.1 gm/dL (11.4-16.0) L 10/05/19 06:19 Hct 32.9 % (34.0-46.0) L 10/05/19 06:19 MCV 95.5 fL (80.0-100.0) 10/05/19 06:19 MCH 32.1 pg (25.0-35.0) 10/05/19 06:19 MCHC 33.6 g/dL (31.0-37.0) 10/05/19 06:19 RDW 11.6 % (11.5-15.5) 10/05/19 06:19 Plt Count 117 k/uL (150-450) L 10/05/19 06:19 Neutrophils % 51 % 10/05/19 06:19 Lymphocytes % 42 % 10/05/19 06:19 Monocytes % 5 % 10/05/19 06:19 Eosinophils % 1 % 10/05/19 06:19 Basophils % 0 % 10/05/19 06:19 Neutrophils # 2.0 k/uL (1.3-7.7) 10/05/19 06:19 Lymphocytes # 1.6 k/uL (1.0-4.8) 10/05/19 06:19 Monocytes # 0.2 k/uL (0-1.0) 10/05/19 06:19 Eosinophils # 0.0 k/uL (0-0.7) 10/05/19 06:19 Basophils # 0.0 k/uL (0-0.2) 10/05/19 06:19 Sodium 139 mmol/L (137-145) 10/05/19 06:19 Potassium 3.8 mmol/L (3.5-5.1) 10/05/19 06:19 Chloride 107 mmol/L (98-107) 10/05/19 06:19 Carbon Dioxide 26 mmol/L (22-30) 10/05/19 06:19 Anion Gap 6 mmol/L 10/05/19 06:19 BUN 12 mg/dL (7-17) 10/05/19 06:19 Creatinine 0.78 mg/dL (0.52-1.04) 10/05/19 06:19 Est GFR (CKD-EPI)AfAm >90 (>60 ml/min/1.73 sqM) 10/05/19 06:19 Est GFR (CKD-EPI)NonAf >90 (>60 ml/min/1.73 sqM) 10/05/19 06:19 Glucose 88 mg/dL (74-99) 10/05/19 06:19 Plasma Lactic Acid Tristin 0.5 mmol/L (0.7-2.0) L 10/04/19 13:00 Calcium 7.8 mg/dL (8.4-10.2) L 10/05/19 06:19 Total Bilirubin 0.4 mg/dL (0.2-1.3) 10/04/19 13:00 AST 28 U/L (14-36) 10/04/19 13:00 ALT 23 U/L (9-52) 10/04/19 13:00 Alkaline Phosphatase 41 U/L (38-126) 10/04/19 13:00 Total Protein 6.9 g/dL (6.3-8.2) 10/04/19 13:00 Albumin 4.3 g/dL (3.5-5.0) 10/04/19 13:00 TSH 0.232 mIU/L (0.465-4.680) L 10/04/19 13:00 Free T4 1.42 ng/dL (0.78-2.19) 10/04/19 13:00 Cortisol 5 ug/dL 10/04/19 13:00 Urine Color Yellow 10/04/19 13:00 Urine Appearance Cloudy (Clear) H 10/04/19 13:00 Urine pH 6.0 (5.0-8.0) 10/04/19 13:00 Ur Specific [place] 1.013 (1.001-1.035) 10/04/19 13:00 Urine Protein Trace (Negative) H 10/04/19 13:00 Urine Glucose (UA) Negative (Negative) 10/04/19 13:00 Urine Ketones 1+ (Negative) H 10/04/19 13:00 Urine Blood Moderate (Negative) H 10/04/19 13:00 Urine Nitrite Negative (Negative) 10/04/19 13:00 Urine Bilirubin Negative (Negative) 10/04/19 13:00 Urine Urobilinogen <2.0 mg/dL (<2.0) 10/04/19 13:00 Ur Leukocyte Esterase Negative (Negative) 10/04/19 13:00 Urine RBC 4 /hpf (0-5) 10/04/19 13:00 Urine WBC 4 /hpf (0-5) 10/04/19 13:00 Ur Squamous Epith Cells 13 /hpf (0-4) H 10/04/19 13:00 Urine Bacteria Rare /hpf (None) H 10/04/19 13:00 Urine Mucus Rare /hpf (None) H 10/04/19 13:00 Urine HCG, Qual Not Detected (Not Detectd) 10/04/19 13:00 Influenza Type A RNA Not Detected (Not Detectd) 10/04/19 13:00 Influenza Type B (PCR) Not Detected (Not Detectd) 10/04/19 13:00 Assessment and Plan (1) Acute sinusitis Narrative/Plan: 34 -year-old woman who has a history of lupus who is on significant immunosuppressive therapy with CellCept and prednisone and methotrexate. She did take her dose of methotrexate yesterday. She's instructed to hold her methotrexate next week until she has had complete resolution of her underlying infection. Holding the methotrexate may help with resolution of her infection. He does appear she has acute sinusitis with receiving immunocompromised who was concerned it could be a fungal component. The computed tomography scan reveals evidence of no destructive lesions, there is no invasive lesions. Is currently antibiotic therapy with Zosyn and did receive her first dose of Eraxis. Interestingly Eraxis will be continued is with Zosyn for now. Cultures are in process.. Chest x-ray is negative no evidence of pneumonia at this time Current Visit: Yes Status: Acute Code(s): J01.90 - ACUTE SINUSITIS, UNSPECIFIED SNOMED Code(s): 08432725 (2) Lupus Current Visit: Yes Status: Acute Code(s): M32.9 - SYSTEMIC LUPUS ERYTHEMATOSUS, UNSPECIFIED SNOMED Code(s): 61222449
[2019-10-06] MEDS: ANIDULAFUNGIN 100 MG in SODIUM CHLORIDE 0.9% 100 ML IVPB SCH (14:10)
[2019-10-06] MEDS: LISINOPRIL 2.5 MG TAB PO SCH (20:03)
[2019-10-07] MEDS: PIPERACILLIN-TAZOBACTAM 3.375 GM in SODIUM CHLORIDE 0.9% 100 ML IVPB SCH ×4 (00:24→23:01)
[2019-10-07] MEDS: HYDROmorphone 1 MG/ML 1 ML SYRINGE IVP PRN ×6 (00:29→23:04)
[2019-10-07] MEDS: ONDANSETRON 4 MG TAB PO PRN (04:03)
[2019-10-07] MEDS ORDERED: ONDANSETRON 4 MG/2 ML VIAL IVP PRN (08:31)
[2019-10-07] MEDS: PANTOPRAZOLE 40 MG TABLET PO SCH (09:09)
[2019-10-07] MEDS: NICOTINE 21MG/24HR PATCH TRANSDERM SCH (09:10)
[2019-10-07] MEDS: HYDROXYCHLOROQUINE SULFATE 200 MG TAB PO SCH ×2 (09:11→21:05)
[2019-10-07] MEDS: MYCOPHENOLATE MOFETIL 500 MG TAB PO SCH ×2 (09:11→21:06)
[2019-10-07] MEDS: ANIDULAFUNGIN 100 MG in SODIUM CHLORIDE 0.9% 100 ML IVPB SCH (12:20)
[2019-10-07] MEDS ORDERED: METOCLOPRAMIDE 5 MG/ML 2 ML VIAL IVP SCH (13:00)
[2019-10-07] MEDS: ONDANSETRON 4 MG/2 ML VIAL IVP PRN ×3 (13:07→21:06)
--- NOTE | 2019-10-07 13:13 | PN ---
PROGRESS NOTE CHIEF COMPLAINT: Cough, congestion, headache, and lupus erythematosus. HISTORY OF PRESENT ILLNESS: This lady started to have some nausea and vomiting during the night. She has had abdominal pain. She also did also have a low-grade temperature. PHYSICAL EXAMINATION: Chest is quite clear. Cardiac exam is normal. No murmurs or extra sounds. The abdomen is flat, soft, nontender. IMPRESSION: 1. Nausea. 2. Probable viremia. 3. Possible sinusitis. 4. SLE. PLAN: Continue to monitor her vital signs and continue antibiotics. Additional blood work will be ordered. MMODL / IJN: [id number] /
[2019-10-07 13:35] LABS: Basophils % (A) 0 %; Eosinophils % (A) 1 %; HCT 37.7 % (34.0-46.0); HGB 12.2 gm/dL (11.4-16.0); Lymphocytes # (A) 1.5 k/uL (1.0-4.8); Lymphocytes % (A) 46 %; MCH 31.6 pg (25.0-35.0); MCHC 32.4 g/dL (31.0-37.0); MCV 97.6 fL (80.0-100.0); Mean Platelet Volume 8.1; Monocytes # (A) 0.1 k/uL (0-1.0); Monocytes % (A) 4 %; Neutrophils # (A) 1.5 k/uL (1.3-7.7); Neutrophils % (A) 48 %; Platelet Count 119 k/uL (150-450); RBC 3.87 m/uL (3.80-5.40); RDW 11.3 % (11.5-15.5); WBC 3.2 k/uL (3.8-10.6)
[2019-10-07] MEDS: LISINOPRIL 2.5 MG TAB PO SCH (21:05)
[2019-10-08] MEDS: ONDANSETRON 4 MG/2 ML VIAL IVP PRN ×5 (01:05→23:25)
[2019-10-08 07:06] LABS: Basophils % (A) 0 %; Eosinophils % (A) 1 %; HCT 37.8 % (34.0-46.0); HGB 12.3 gm/dL (11.4-16.0); Lymphocytes # (A) 1.6 k/uL (1.0-4.8); Lymphocytes % (A) 45 %; MCH 30.7 pg (25.0-35.0); MCHC 32.6 g/dL (31.0-37.0); Mean Platelet Volume 7.5; Monocytes # (A) 0.2 k/uL (0-1.0); Monocytes % (A) 5 %; Neutrophils # (A) 1.7 k/uL (1.3-7.7); Neutrophils % (A) 47 %; Platelet Count 152 k/uL (150-450); RBC 4.02 m/uL (3.80-5.40); RDW 11.3 % (11.5-15.5); WBC 3.6 k/uL (3.8-10.6)
[2019-10-08] MEDS: HYDROmorphone 1 MG/ML 1 ML SYRINGE IVP PRN ×4 (08:39→23:24)
[2019-10-08] MEDS: NICOTINE 21MG/24HR PATCH TRANSDERM SCH (08:39)
[2019-10-08] MEDS: PANTOPRAZOLE 40 MG TABLET PO SCH (08:39)
[2019-10-08] MEDS: PIPERACILLIN-TAZOBACTAM 3.375 GM in SODIUM CHLORIDE 0.9% 100 ML IVPB SCH ×3 (08:40→23:24)
[2019-10-08] MEDS: HYDROXYCHLOROQUINE SULFATE 200 MG TAB PO SCH ×2 (10:21→20:29)
[2019-10-08] MEDS: MYCOPHENOLATE MOFETIL 500 MG TAB PO SCH ×2 (10:21→20:29)
[2019-10-08] MEDS: ANIDULAFUNGIN 100 MG in SODIUM CHLORIDE 0.9% 100 ML IVPB SCH (13:00)
[2019-10-08 13:26] LABS: ALT 68 U/L (9-52); AST 47 U/L (14-36); African American GFR (CKD) >90 (>60 ml/min/1.73 sqM); Albumin 3.9 g/dL (3.5-5.0); Alkaline Phosphatase 79 U/L (38-126); Anion Gap 13 mmol/L; Blood Urea Nitrogen 22 mg/dL (7-17); Calcium 8.8 mg/dL (8.4-10.2); Carbon Dioxide 23 mmol/L (22-30); Chloride 105 mmol/L (98-107); Glucose 57 mg/dL (74-99); Non-African American GFR(CKD) >90 (>60 ml/min/1.73 sqM); Potassium 4.5 mmol/L (3.5-5.1); Sodium 141 mmol/L (137-145); Total Bilirubin 0.6 mg/dL (0.2-1.3); Total Protein 6.6 g/dL (6.3-8.2)
--- NOTE | 2019-10-08 15:40 | XR ---
EXAMINATION TYPE: XR chest 2V DATE OF EXAM: 10/08/2019 COMPARISON: 10/04/2019 TECHNIQUE: PA and lateral views submitted. HISTORY: Cough FINDINGS: The lungs are clear and there is no pneumothorax, pleural effusion, or focal pneumonia. Surgical cl ips overlying the left axilla mild hyperinflation. Correlate for asthma or COPD. Surgical clips in th e right upper quadrant abdomen. IMPRESSION: 1. No acute process.
--- NOTE | 2019-10-08 16:37 | PN ---
PROGRESS NOTE CHIEF COMPLAINT: Bronchitis, sinusitis, and nausea and vomiting. HISTORY OF PRESENT ILLNESS: This lady is still nauseated and vomiting. She has had no abdominal pain, diarrhea, hematemesis, etc. Temperature has been down and vital signs are otherwise normal. PHYSICAL EXAM: Head ears, eyes, nose, mouth, and throat were normal. Neck is supple. Neck veins not distended. Chest is clear. Cardiac exam demonstrated sinus rhythm. The abdomen is flat, soft, nontender without any masses. Bowel sounds are present. IMPRESSION: 1. Bronchitis. 2. Sinusitis. 3. SLE. 4. Immunosuppression. 5. Nausea and vomiting, etiology unknown. PLAN: 1. Continue IV fluids and antiemetics. 2. Continue antibiotics. 3. Cultures have been repeated and have been negative so far. MMODL / IJN: [id number] /
[2019-10-08] MEDS: LISINOPRIL 2.5 MG TAB PO SCH (20:29)
[2019-10-08] MEDS: ALPRAZolam 1 MG TAB PO PRN (20:29)
--- NOTE | 2019-10-08 23:21 | P.PN ---
Subjective Progress Note Date: 10/08/19 34-year-old woman who has a history of lupus and is on Imuran suppressive therapy with methotrexate CellCept and steroids who is him as control of her lupus over time. Over presents to hospital with head movement L for more than a week. She was seen in the outpatient setting was given a course of antibiotic therapy. Despite the antibiotic she continues to feel poorly. She has headache, sinus congestion, drainage, some cough without much sputum production. She's also had fever and chill and feels quite poorly overall. She is feeling slightly better at this time. She is overly feel better soon so that she can go home to be with her significant other and her puppy. She is full-time at home because of her medical issues and and has bonded strongly to the dog. 10/08/2019 Patient is feeling slightly better but has developed some further congestion and now has developed some left ear pain due to some increased pressure after nose blowing. She still feels some significant congestion. Put her fevers and general misery have improved. Headaches improved. Objective - Vital Signs Vital signs: Vital Signs Temp 97.4 F L 10/08/19 14:20 Pulse 62 10/08/19 14:20 Resp 15 10/08/19 14:20 BP 132/86 10/08/19 14:20 Pulse Ox 96 10/08/19 14:20 Intake & Output 10/08/19 10/08/19 10/09/19 06:59 18:59 06:59 Intake Total 590 600 120 Balance 590 600 120 Intake: Intake, IV Titration 100 Amount Anidulafungin 100 mg In 100 Sodium Chloride 0.9% 100 ml @ 84 mls/hr IVPB DAILY @1400 [facility] Rx#:[id number] Oral 590 500 120 Other: Voiding Method Toilet Toilet # Voids 2 2 1 - Exam HEENT: Anicteric conjunctiva are pink and moist nasal mucosa grossly intact without significant lesions, there is no thrush. There is some mild tenderness over the maxillary sinuses Neck: The neck is supple without significant lymphadenopathy or thyromegaly. Lungs: Good bilateral air entry without significant crackles or wheezing. There is no significant bronchial sounds. There is no egophony or dullness. Heart: Regular rate and rhythm with an audible S1-S2, no S3 no S4. There is no significant murmur click or rub, PMI was nondisplaced. Abdomen: Positive bowel sounds soft and nontender without palpable masses or organomegaly. There was no guarding or rebound. Extremities: The upper extremities have excellent pulses they are symmetric, no significant petechiae or telangiectasia. No splinter hemorrhages were noted. The lower extremities are free from significant edema. The peripheral pulses were 2+ and symmetric. Neuro: Awake alert oriented to person place and time. There are no acute new gross focal sensory motor deficits. - Labs CBC & Chem 7: 10/08/19 06:13 10/08/19 06:13 Labs: Abnormal Lab Results - Last 24 Hours (Table) 10/08/19 10/08/19 Range/Units 06:13 06:13 WBC 3.6 L (3.8-10.6) k/uL RDW 11.3 L (11.5-15.5) % BUN 22 H (7-17) mg/dL Glucose 57 L (74-99) mg/dL AST 47 H (14-36) U/L ALT 68 H (9-52) U/L Microbiology - Last 24 Hours (Table) 10/04/19 16:57 Blood Culture - Preliminary Blood No Growth after 96 hours 10/07/19 13:25 Blood Culture - Preliminary Blood No Growth after 24 hours 10/07/19 13:58 Urine Culture - Final Urine,Clean Catch Laboratory Results WBC 3.6 k/uL (3.8-10.6) L 10/08/19 06:13 RBC 4.02 m/uL (3.80-5.40) 10/08/19 06:13 Hgb 12.3 gm/dL (11.4-16.0) 10/08/19 06:13 Hct 37.8 % (34.0-46.0) 10/08/19 06:13 MCV 94.0 fL (80.0-100.0) 10/08/19 06:13 MCH 30.7 pg (25.0-35.0) 10/08/19 06:13 MCHC 32.6 g/dL (31.0-37.0) 10/08/19 06:13 RDW 11.3 % (11.5-15.5) L 10/08/19 06:13 Plt Count 152 k/uL (150-450) 10/08/19 06:13 Neutrophils % 47 % 10/08/19 06:13 Lymphocytes % 45 % 10/08/19 06:13 Monocytes % 5 % 10/08/19 06:13 Eosinophils % 1 % 10/08/19 06:13 Basophils % 0 % 10/08/19 06:13 Neutrophils # 1.7 k/uL (1.3-7.7) 10/08/19 06:13 Lymphocytes # 1.6 k/uL (1.0-4.8) 10/08/19 06:13 Monocytes # 0.2 k/uL (0-1.0) 10/08/19 06:13 Eosinophils # 0.0 k/uL (0-0.7) 10/08/19 06:13 Basophils # 0.0 k/uL (0-0.2) 10/08/19 06:13 Sodium 141 mmol/L (137-145) 10/08/19 06:13 Potassium 4.5 mmol/L (3.5-5.1) 10/08/19 06:13 Chloride 105 mmol/L (98-107) 10/08/19 06:13 Carbon Dioxide 23 mmol/L (22-30) 10/08/19 06:13 Anion Gap 13 mmol/L 10/08/19 06:13 BUN 22 mg/dL (7-17) H 10/08/19 06:13 Creatinine 0.81 mg/dL (0.52-1.04) 10/08/19 06:13 Est GFR (CKD-EPI)AfAm >90 (>60 ml/min/1.73 sqM) 10/08/19 06:13 Est GFR (CKD-EPI)NonAf >90 (>60 ml/min/1.73 sqM) 10/08/19 06:13 Glucose 57 mg/dL (74-99) L 10/08/19 06:13 Plasma Lactic Acid Tristin <0.5 mmol/L (0.7-2.0) L 10/07/19 13:25 Calcium 8.8 mg/dL (8.4-10.2) 10/08/19 06:13 Total Bilirubin 0.6 mg/dL (0.2-1.3) 10/08/19 06:13 AST 47 U/L (14-36) H 10/08/19 06:13 ALT 68 U/L (9-52) H 10/08/19 06:13 Alkaline Phosphatase 79 U/L (38-126) 10/08/19 06:13 Total Protein 6.6 g/dL (6.3-8.2) 10/08/19 06:13 Albumin 3.9 g/dL (3.5-5.0) 10/08/19 06:13 TSH 0.232 mIU/L (0.465-4.680) L 10/04/19 13:00 Free T4 1.42 ng/dL (0.78-2.19) 10/04/19 13:00 Cortisol 5 ug/dL 10/04/19 13:00 Urine Color Yellow 10/04/19 13:00 Urine Appearance Cloudy (Clear) H 10/04/19 13:00 Urine pH 6.0 (5.0-8.0) 10/04/19 13:00 Ur Specific [place] 1.013 (1.001-1.035) 10/04/19 13:00 Urine Protein Trace (Negative) H 10/04/19 13:00 Urine Glucose (UA) Negative (Negative) 10/04/19 13:00 Urine Ketones 1+ (Negative) H 10/04/19 13:00 Urine Blood Moderate (Negative) H 10/04/19 13:00 Urine Nitrite Negative (Negative) 10/04/19 13:00 Urine Bilirubin Negative (Negative) 10/04/19 13:00 Urine Urobilinogen <2.0 mg/dL (<2.0) 10/04/19 13:00 Ur Leukocyte Esterase Negative (Negative) 10/04/19 13:00 Urine RBC 4 /hpf (0-5) 10/04/19 13:00 Urine WBC 4 /hpf (0-5) 10/04/19 13:00 Ur Squamous Epith Cells 13 /hpf (0-4) H 10/04/19 13:00 Urine Bacteria Rare /hpf (None) H 10/04/19 13:00 Urine Mucus Rare /hpf (None) H 10/04/19 13:00 Urine HCG, Qual Not Detected (Not Detectd) 10/04/19 13:00 Influenza Type A RNA Not Detected (Not Detectd) 10/04/19 13:00 Influenza Type B (PCR) Not Detected (Not Detectd) 10/04/19 13:00 Microbiology 10/04/19 16:57 Blood Blood Culture - Preliminary No Growth after 96 hours 10/07/19 13:25 Blood Blood Culture - Preliminary No Growth after 24 hours 10/07/19 13:58 Urine,Clean Catch Urine Culture - Final Assessment and Plan (1) Acute sinusitis Narrative/Plan: 34 -year-old woman who has a history of lupus who is on significant immunosuppressive therapy with CellCept and prednisone and methotrexate. She did take her dose of methotrexate yesterday. She's instructed to hold her methotrexate next week until she has had complete resolution of her underlying infection. Holding the methotrexate may help with resolution of her infection. He does appear she has acute sinusitis with receiving immunocompromised who was concerned it could be a fungal component. The computed tomography scan reveals evidence of no destructive lesions, there is no invasive lesions. Is currently antibiotic therapy with Zosyn and did receive her first dose of Eraxis. Interestingly Eraxis will be continued is with Zosyn for now. Cultures are in process.. Chest x-ray is negative no evidence of pneumonia at this time 10/18/2019 the patient is showing some further improvement. She'll resume of some pain to her right ear. She's been doing some nose blowing pressurized her sinus cavity entraps air within the left ear. She is feeling somewhat better. Afrin nasal spray will be requested try to open her sinuses to try to relieve the current Escher to the middle ear. She is receiving antibiotic and antifungal therapy. She is further improved tomorrow and be able to transition her an Rx Augmentin and fluconazole to complete her course of therapy. Outpatient ENT evaluation may be indicated if she does not rapidly improve. His of the computed tomography scan does not show evidence of any bony destruction. Current Visit: Yes Status: Acute Code(s): J01.90 - ACUTE SINUSITIS, UNSPECIFIED SNOMED Code(s): 54367209 (2) Lupus Current Visit: Yes Status: Acute Code(s): M32.9 - SYSTEMIC LUPUS ERYTHEMATOSUS, UNSPECIFIED SNOMED Code(s): 63061876
[2019-10-08] MEDS: OXYMETAZOLINE 0.05% NASL SPRAY 1 SPRAY BOTTLE NASAL SCH (23:23)
[2019-10-09] MEDS: NICOTINE 21MG/24HR PATCH TRANSDERM SCH (07:24)
[2019-10-09] MEDS: HYDROmorphone 1 MG/ML 1 ML SYRINGE IVP PRN ×3 (07:24→19:47)
[2019-10-09] MEDS: ONDANSETRON 4 MG/2 ML VIAL IVP PRN ×2 (07:25→14:40)
[2019-10-09] MEDS: PIPERACILLIN-TAZOBACTAM 3.375 GM in SODIUM CHLORIDE 0.9% 100 ML IVPB SCH ×2 (07:26→18:39)
[2019-10-09] MEDS: PANTOPRAZOLE 40 MG TABLET PO SCH (07:33)
[2019-10-09] MEDS: MYCOPHENOLATE MOFETIL 500 MG TAB PO SCH ×2 (07:33→19:56)
[2019-10-09] MEDS: OXYMETAZOLINE 0.05% NASL SPRAY 1 SPRAY BOTTLE NASAL SCH ×2 (07:33→22:16)
[2019-10-09] MEDS: HYDROXYCHLOROQUINE SULFATE 200 MG TAB PO SCH ×2 (07:33→19:57)
[2019-10-09 11:31] LABS: ALT 51 U/L (9-52); AST 29 U/L (14-36)
[2019-10-09] MEDS: ANIDULAFUNGIN 100 MG in SODIUM CHLORIDE 0.9% 100 ML IVPB SCH (14:40)
--- NOTE | 2019-10-09 17:12 | US ---
EXAMINATION TYPE: US liver DATE OF EXAM: 10/09/2019 COMPARISON: NONE CLINICAL HISTORY: inc. LFTs. Patient had Lupus flare up, h/o cholecystomy, increased LFTs EXAM MEASUREMENTS: Liver Length: 15.5 cm Gallbladder Wall: Surgically absent CBD: 0.3 cm Right Kidney: 10.8 x 4.9 x 4.2 cm Pancreas: wnl Liver: wnl Gallbladder: Surgically absent Evidence for sonographic Kelley's sign: no CBD: wnl Right Kidney: wnl IMPRESSION: No acute process.
[2019-10-09] MEDS: ONDANSETRON 4 MG TAB PO PRN (19:55)
[2019-10-09] MEDS: LISINOPRIL 2.5 MG TAB PO SCH (19:56)
[2019-10-09] MEDS: ALPRAZolam 1 MG TAB PO PRN (22:11)
--- NOTE | 2019-10-10 00:25 | P.PN ---
Subjective Progress Note Date: 10/09/19 34-year-old woman who has a history of lupus and is on Imuran suppressive therapy with methotrexate CellCept and steroids who is him as control of her lupus over time. Over presents to hospital with head movement L for more than a week. She was seen in the outpatient setting was given a course of antibiotic therapy. Despite the antibiotic she continues to feel poorly. She has headache, sinus congestion, drainage, some cough without much sputum production. She's also had fever and chill and feels quite poorly overall. She is feeling slightly better at this time. She is overly feel better soon so that she can go home to be with her significant other and her puppy. She is full-time at home because of her medical issues and and has bonded strongly to the dog. 10/08/2019 Patient is feeling slightly better but has developed some further congestion and now has developed some left ear pain due to some increased pressure after nose blowing. She still feels some significant congestion. Put her fevers and general misery have improved. Headaches improved. 10/09/2019 continues to feel poorly. Has ongoing sinus congestion pain and discomfort into her ear. Requiring ongoing doses of Dilaudid for comfort. Routinely takes [place] at home. Relates that Afrin nasal spray has afforded her only minimal relief Fever though has resolved. Objective - Vital Signs Vital signs: Vital Signs Temp 98.1 F 10/09/19 15:00 Pulse 76 10/09/19 15:00 Resp 16 10/09/19 15:00 BP 142/90 10/09/19 15:00 Pulse Ox 95 10/09/19 15:00 Intake & Output 10/09/19 10/09/19 10/10/19 06:59 18:59 06:59 Intake Total 120 Balance 120 Intake: Oral 120 Other: Voiding Method Toilet # Voids 1 2 1 - Exam HEENT: Anicteric conjunctiva are pink and moist nasal mucosa grossly intact without significant lesions, there is no thrush. There is some mild tenderness over the maxillary sinuses Neck: The neck is supple without significant lymphadenopathy or thyromegaly. Lungs: Good bilateral air entry without significant crackles or wheezing. There is no significant bronchial sounds. There is no egophony or dullness. Heart: Regular rate and rhythm with an audible S1-S2, no S3 no S4. There is no significant murmur click or rub, PMI was nondisplaced. Abdomen: Positive bowel sounds soft and nontender without palpable masses or organomegaly. There was no guarding or rebound. Extremities: The upper extremities have excellent pulses they are symmetric, no significant petechiae or telangiectasia. No splinter hemorrhages were noted. The lower extremities are free from significant edema. The peripheral pulses were 2+ and symmetric. Neuro: Awake alert oriented to person place and time. There are no acute new gross focal sensory motor deficits. - Labs CBC & Chem 7: 10/08/19 06:13 10/08/19 06:13 Labs: Microbiology - Last 24 Hours (Table) 10/04/19 16:57 Blood Culture - Preliminary Blood No Growth after 120 hours 10/07/19 13:25 Blood Culture - Preliminary Blood No Growth after 48 hours Laboratory Results WBC 3.6 k/uL (3.8-10.6) L 10/08/19 06:13 RBC 4.02 m/uL (3.80-5.40) 10/08/19 06:13 Hgb 12.3 gm/dL (11.4-16.0) 10/08/19 06:13 Hct 37.8 % (34.0-46.0) 10/08/19 06:13 MCV 94.0 fL (80.0-100.0) 10/08/19 06:13 MCH 30.7 pg (25.0-35.0) 10/08/19 06:13 MCHC 32.6 g/dL (31.0-37.0) 10/08/19 06:13 RDW 11.3 % (11.5-15.5) L 10/08/19 06:13 Plt Count 152 k/uL (150-450) 10/08/19 06:13 Neutrophils % 47 % 10/08/19 06:13 Lymphocytes % 45 % 10/08/19 06:13 Monocytes % 5 % 10/08/19 06:13 Eosinophils % 1 % 10/08/19 06:13 Basophils % 0 % 10/08/19 06:13 Neutrophils # 1.7 k/uL (1.3-7.7) 10/08/19 06:13 Lymphocytes # 1.6 k/uL (1.0-4.8) 10/08/19 06:13 Monocytes # 0.2 k/uL (0-1.0) 10/08/19 06:13 Eosinophils # 0.0 k/uL (0-0.7) 10/08/19 06:13 Basophils # 0.0 k/uL (0-0.2) 10/08/19 06:13 Sodium 141 mmol/L (137-145) 10/08/19 06:13 Potassium 4.5 mmol/L (3.5-5.1) 10/08/19 06:13 Chloride 105 mmol/L (98-107) 10/08/19 06:13 Carbon Dioxide 23 mmol/L (22-30) 10/08/19 06:13 Anion Gap 13 mmol/L 10/08/19 06:13 BUN 22 mg/dL (7-17) H 10/08/19 06:13 Creatinine 0.81 mg/dL (0.52-1.04) 10/08/19 06:13 Est GFR (CKD-EPI)AfAm >90 (>60 ml/min/1.73 sqM) 10/08/19 06:13 Est GFR (CKD-EPI)NonAf >90 (>60 ml/min/1.73 sqM) 10/08/19 06:13 Glucose 57 mg/dL (74-99) L 10/08/19 06:13 Plasma Lactic Acid Tristin <0.5 mmol/L (0.7-2.0) L 10/07/19 13:25 Calcium 8.8 mg/dL (8.4-10.2) 10/08/19 06:13 Total Bilirubin 0.6 mg/dL (0.2-1.3) 10/08/19 06:13 AST 29 U/L (14-36) 10/09/19 10:50 ALT 51 U/L (9-52) 10/09/19 10:50 Alkaline Phosphatase 79 U/L (38-126) 10/08/19 06:13 Total Protein 6.6 g/dL (6.3-8.2) 10/08/19 06:13 Albumin 3.9 g/dL (3.5-5.0) 10/08/19 06:13 TSH 0.232 mIU/L (0.465-4.680) L 10/04/19 13:00 Free T4 1.42 ng/dL (0.78-2.19) 10/04/19 13:00 Cortisol 5 ug/dL 10/04/19 13:00 Urine Color Yellow 10/04/19 13:00 Urine Appearance Cloudy (Clear) H 10/04/19 13:00 Urine pH 6.0 (5.0-8.0) 10/04/19 13:00 Ur Specific Wol[place] 1.013 (1.001-1.035) 10/04/19 13:00 Urine Protein Trace (Negative) H 10/04/19 13:00 Urine Glucose (UA) Negative (Negative) 10/04/19 13:00 Urine Ketones 1+ (Negative) H 10/04/19 13:00 Urine Blood Moderate (Negative) H 10/04/19 13:00 Urine Nitrite Negative (Negative) 10/04/19 13:00 Urine Bilirubin Negative (Negative) 10/04/19 13:00 Urine Urobilinogen <2.0 mg/dL (<2.0) 10/04/19 13:00 Ur Leukocyte Esterase Negative (Negative) 10/04/19 13:00 Urine RBC 4 /hpf (0-5) 10/04/19 13:00 Urine WBC 4 /hpf (0-5) 10/04/19 13:00 Ur Squamous Epith Cells 13 /hpf (0-4) H 10/04/19 13:00 Urine Bacteria Rare /hpf (None) H 10/04/19 13:00 Urine Mucus Rare /hpf (None) H 10/04/19 13:00 Urine HCG, Qual Not Detected (Not Detectd) 10/04/19 13:00 Influenza Type A RNA Not Detected (Not Detectd) 10/04/19 13:00 Influenza Type B (PCR) Not Detected (Not Detectd) 10/04/19 13:00 Microbiology 10/04/19 16:57 Blood Blood Culture - Preliminary No Growth after 120 hours 10/07/19 13:25 Blood Blood Culture - Preliminary No Growth after 48 hours 10/07/19 13:58 Urine,Clean Catch Urine Culture - Final Assessment and Plan (1) Acute sinusitis Narrative/Plan: 34 -year-old woman who has a history of lupus who is on significant immunosuppressive therapy with CellCept and prednisone and methotrexate. She did take her dose of methotrexate yesterday. She's instructed to hold her methotrexate next week until she has had complete resolution of her underlying infection. Holding the methotrexate may help with resolution of her infection. He does appear she has acute sinusitis with receiving immunocompromised who was concerned it could be a fungal component. The computed tomography scan reveals evidence of no destructive lesions, there is no invasive lesions. Is currently antibiotic therapy with Zosyn and did receive her first dose of Eraxis. Interestingly Eraxis will be continued is with Zosyn for now. Cultures are in process.. Chest x-ray is negative no evidence of pneumonia at this time 10/09/2019 the patient is showing some further improvement. She'll resume of some pain to her right ear. She's been doing some nose blowing pressurized her sinus cavity entraps air within the left ear. She is feeling somewhat better. Afrin nasal spray will be requested try to open her sinuses to try to relieve the current Escher to the middle ear. She is receiving antibiotic and antifungal therapy. She is further improved tomorrow and be able to transition her an Rx Augmentin and fluconazole to complete her course of therapy. Outpatient ENT evaluation may be indicated if she does not rapidly improve. His of the computed tomography scan does not show evidence of any bony destruction. Current Visit: Yes Status: Acute Code(s): J01.90 - ACUTE SINUSITIS, UNSPECIFIED SNOMED Code(s): 66588121 (2) Lupus Current Visit: Yes Status: Acute Code(s): M32.9 - SYSTEMIC LUPUS ERYTHEMATOSUS, UNSPECIFIED SNOMED Code(s): 66077606
[2019-10-10] MEDS: HYDROmorphone 1 MG/ML 1 ML SYRINGE IVP PRN ×2 (00:33→12:38)
[2019-10-10] MEDS: PIPERACILLIN-TAZOBACTAM 3.375 GM in SODIUM CHLORIDE 0.9% 100 ML IVPB SCH ×2 (00:33→07:44)
[2019-10-10] MEDS: NICOTINE 21MG/24HR PATCH TRANSDERM SCH (07:44)
[2019-10-10] MEDS: MYCOPHENOLATE MOFETIL 500 MG TAB PO SCH (07:44)
[2019-10-10] MEDS: PANTOPRAZOLE 40 MG TABLET PO SCH (07:44)
[2019-10-10] MEDS: HYDROXYCHLOROQUINE SULFATE 200 MG TAB PO SCH (07:44)
[2019-10-10] MEDS: OXYMETAZOLINE 0.05% NASL SPRAY 1 SPRAY BOTTLE NASAL SCH (07:45)
[2019-10-10 07:59] VITALS: BP 105/73; PULSE 55; RESP 16; TEMP 97.5
--- NOTE | 2019-10-10 13:46 | DS ---
DISCHARGE SUMMARY CHIEF COMPLAINT: Fever, chills, cough, headache in lupus patient with immunosuppression. HISTORY OF PRESENT ILLNESS AND PHYSICAL EXAM: Details of this lady's history and physical can be found in the initial workup. LABORATORY STUDIES: While she was in a hospital she had laboratory studies, details of which can be found in the laboratory section of her chart. COURSE IN HOSPITAL: After admission, she was placed on bedrest and started on IV fluids and antibiotics. Appropriate cultures were obtained. She was seen by Infectious Disease. Referral was sent out to ENT because of the concern for a possible fungal infection in the left maxillary sinus, but they refused to come in and see the patient. She was placed on antifungal eventually. Clinically she slowly improved. Her cultures were all negative. It was felt that it was very likely that this was all related to a viral process and she did improve and it was felt she could be discharged on the . She will go home on her usual activity, diet and medication. She will finish up the Levaquin and Medrol Dosepak that she was on at home before she came in and she will be seen in the office in 1 or 2 days. FINAL DIAGNOSES: 1. Viremia. 2. Left maxillary sinusitis. 3. Bronchitis. 4. Systemic lupus erythematosus on immunosuppression. OPERATIONS: None. CONSULTATIONS: Infectious Disease. ENT, who did not see year. She is improved. MMODL / IJN: [id number] /
[2019-10-10] MEDS: ANIDULAFUNGIN 100 MG in SODIUM CHLORIDE 0.9% 100 ML IVPB SCH (15:27)
[2019-10-11] MEDS ORDERED: METHOTREXATE SODIUM 2.5 MG TAB PO SCH (09:00)
== END 2019-10-10 15:52 | disposition home or self-care (01) | DRG 872 ==
LOC: EC 11:43 → 6PED 16:22 → 1SOBS 10-06 08:28 → OBSVTOIN 10-06 14:07 → 4SSUR 10-06 22:52
PROVIDERS: ADMIT Family Medicine; ATTEND Family Medicine
DX: A41.89 Other specified sepsis (principal); F17.200 Nicotine dependence, unspecified, uncomplicated; I10 Essential (primary) hypertension; I73.00 Raynaud's syndrome without gangrene; J01.90 Acute sinusitis, unspecified; J32.4 Chronic pansinusitis; J40 Bronchitis, not specified as acute or chronic; M06.9 Rheumatoid arthritis, unspecified; M32.9 Systemic lupus erythematosus, unspecified; M79.7 Fibromyalgia; Z83.2 Family history of diseases of the blood and blood-forming organs and certain disorders involving the immune mechanism; Z85.828 Personal history of other malignant neoplasm of skin; Z90.49 Acquired absence of other specified parts of digestive tract; Z88.8 Allergy status to other drugs, medicaments and biological substances
CPT/HCPCS: 36415; 70450; 71046; 76705; 80048; 80053; 81001; 81025; 82533; 83605; 84439; 84443; 84450; 84460; 85025; 87040; 87086; 87502; 94640; 96361; 96365; 96375; 99285

== ENCOUNTER → 2019-12-06 | Outpatient (CLI) | payer MEDICARE, OTHER ==
[2019-12-06 11:49] LABS: Basophils % (A) 0 %; Eosinophils % (A) 0 %; HCT 40.4 % (34.0-46.0); HGB 12.9 gm/dL (11.4-16.0); Lymphocytes % (A) 21 %; MCH 31.3 pg (25.0-35.0); MCV 97.8 fL (80.0-100.0); Mean Platelet Volume 9.1; Monocytes # (A) 0.2 k/uL (0-1.0); Monocytes % (A) 3 %; Neutrophils # (A) 3.5 k/uL (1.3-7.7); Neutrophils % (A) 74 %; Platelet Count 139 k/uL (150-450); RBC 4.13 m/uL (3.80-5.40); RDW 12.2 % (11.5-15.5); WBC 4.8 k/uL (3.8-10.6)
[2019-12-06 11:50] LABS: Appearance,Urine Clear (Clear); Bilirubin,Urine Negative (Negative); Blood,Urine Negative (Negative); Color,Urine Yellow; Glucose,Urine (UA) Negative (Negative); Ketones,Urine Negative (Negative); Leukocyte Esterase,Urine Negative (Negative); Nitrite,Urine Negative (Negative); Protein,Urine Trace (Negative); Specific Gravity,Urine 1.023 (1.001-1.035); Urobilinogen,Urine <2.0 mg/dL (<2.0)
[2019-12-06 13:26] LABS: Erythrocyte Sedimentation Rate 4 mm/hr (0-20)
[2019-12-06 16:22] LABS: DNA Double-Stranded NEGATIVE (NEGATIVE)
[2019-12-06 16:27] LABS: ALT 16 U/L (8-44); AST 28 U/L (13-35); African American GFR (CKD) 110.7 (60.0-200.0); C Reactive Protein <0.4 mg/dL (0.0-0.8); Non-African American GFR(CKD) 95.5 (60.0-200.0)
== END | disposition home or self-care (01) ==
LOC: LABWHC1 11:14
PROVIDERS: ATTEND Internal Medicine Rheumatology
DX: M32.9 Systemic lupus erythematosus, unspecified (principal)
CPT/HCPCS: 36415; 81003; 82565; 84450; 84460; 85025; 85652; 86140; 86160; 86225

== ENCOUNTER → 2020-05-20 | Outpatient (CLI) | payer MEDICARE, OTHER ==
[2020-05-20 12:25] LABS: Appearance,Urine Clear (Clear); Bilirubin,Urine Negative (Negative); Blood,Urine Negative (Negative); Color,Urine Light Yellow; Glucose,Urine (UA) Negative (Negative); Ketones,Urine Negative (Negative); Leukocyte Esterase,Urine Negative (Negative); Nitrite,Urine Negative (Negative); Protein,Urine Negative (Negative); Specific Gravity,Urine 1.006 (1.001-1.035); Urobilinogen,Urine <2.0 mg/dL (<2.0)
[2020-05-20 12:26] LABS: Basophils % (A) 0 %; Eosinophils % (A) 1 %; HGB 12.4 gm/dL (11.4-16.0); Lymphocytes # (A) 1.3 k/uL (1.0-4.8); Lymphocytes % (A) 22 %; MCH 32.1 pg (25.0-35.0); MCHC 32.8 g/dL (31.0-37.0); Mean Platelet Volume 9.1; Monocytes # (A) 0.2 k/uL (0-1.0); Monocytes % (A) 3 %; Neutrophils # (A) 4.3 k/uL (1.3-7.7); Neutrophils % (A) 73 %; Platelet Count 138 k/uL (150-450); RBC 3.88 m/uL (3.80-5.40); WBC 5.9 k/uL (3.8-10.6)
[2020-05-20 16:25] LABS: DNA Double-Stranded NEGATIVE (NEGATIVE)
[2020-05-20 16:55] LABS: ALT 17 U/L (8-44); AST 22 U/L (13-35); African American GFR (CKD) 130.1 (60.0-200.0); C Reactive Protein <0.4 mg/dL (0.0-0.8); Non-African American GFR(CKD) 112.3 (60.0-200.0)
[2020-05-20 18:41] LABS: Erythrocyte Sedimentation Rate 5 mm/Hr (0-20)
[2020-05-21 12:44] LABS: Complement C3 68.1 mg/dL (80.0-207.0)
== END | disposition home or self-care (01) ==
LOC: LABWHC1 11:08
PROVIDERS: ATTEND Internal Medicine Rheumatology
DX: M32.9 Systemic lupus erythematosus, unspecified (principal)
CPT/HCPCS: 36415; 81003; 82565; 84450; 84460; 85025; 85652; 86140; 86160; 86225

== ENCOUNTER 2020-06-10 19:21 | Inpatient (IN) | payer OTHER, MEDICARE ==
[2020-06-10] MEDS ORDERED: KETOROLAC 15 MG/ML 1 ML VIAL IM STA (19:49)
[2020-06-10] MEDS ORDERED: MORPHINE SULFATE 2 MG/ML SYRINGE IM STA (19:49)
[2020-06-10] MEDS ORDERED: HYDROmorphone 1 MG/ML 1 ML SYRINGE IM STA ×2 (19:51→21:08)
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
--- NOTE | 2020-06-10 20:28 | XR ---
Sternum HISTORY: Trauma and pain 2 views of the sternum No depressed sternal fracture is evident. Bone mineralization is maintained. There is soft tissue swe lling. IMPRESSION: No acute bone abnormality evident.
--- NOTE | 2020-06-10 20:28 | XR ---
AP pelvis HISTORY: Trauma and pain Single frontal view the pelvis Bone mineralization, joint spaces and alignment are maintained IMPRESSION: No acute fracture or dislocation.
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
[2020-06-10] MEDS ORDERED: traMADol 50 MG STARTER PACK 3 TAB BTL PO STA (21:05)
[2020-06-10] MEDS ORDERED: ACET/COD 300 MG/30 MG STARTER PACK 6 TAB BTL PO STA (21:05)
[2020-06-10] MEDS ORDERED: NALOXONE 0.4 MG/ML 1 ML VIAL IV PRN (21:37)
[2020-06-10] MEDS ORDERED: RX INFO: IV CONTRAST WAS GIVEN 1 EACH MISC MISCELLANE PRN (21:52)
[2020-06-10 22:24] LABS: ALT 19 U/L (4-34); AST 42 U/L (14-36); African American GFR (CKD) >90 (>60 ml/min/1.73 sqM); Albumin 4.2 g/dL (3.5-5.0); Alkaline Phosphatase 31 U/L (38-126); Anion Gap 6 mmol/L; Blood Urea Nitrogen 15 mg/dL (7-17); Calcium 8.7 mg/dL (8.4-10.2); Carbon Dioxide 24 mmol/L (22-30); Chloride 106 mmol/L (98-107); Glucose 80 mg/dL (74-99); Non-African American GFR(CKD) >90 (>60 ml/min/1.73 sqM); Sodium 136 mmol/L (137-145); Total Bilirubin 0.4 mg/dL (0.2-1.3); Total Protein 6.2 g/dL (6.3-8.2)
[2020-06-10 22:26] LABS: Basophils % (A) 0 %; Eosinophils # (A) 0.1 k/uL (0-0.7); Eosinophils % (A) 1 %; HCT 36.7 % (34.0-46.0); HGB 11.9 gm/dL (11.4-16.0); Lymphocytes # (A) 3.1 k/uL (1.0-4.8); Lymphocytes % (A) 27 %; MCH 31.2 pg (25.0-35.0); MCHC 32.4 g/dL (31.0-37.0); MCV 96.3 fL (80.0-100.0); Mean Platelet Volume 8.9; Monocytes # (A) 0.5 k/uL (0-1.0); Monocytes % (A) 4 %; Neutrophils # (A) 7.4 k/uL (1.3-7.7); Neutrophils % (A) 66 %; Platelet Count 141 k/uL (150-450); RBC 3.82 m/uL (3.80-5.40); RDW 12.1 % (11.5-15.5); WBC 11.2 k/uL (3.8-10.6)
[2020-06-10 22:33] LABS: Creatine Kinase 332 U/L (30-135)
[2020-06-10 22:34] LABS: Potassium 4.1 mmol/L (3.5-5.1)
[2020-06-10 22:45] LABS: Creatine Kinase MB 4.1 ng/mL (0.0-2.4); Troponin I <0.012 ng/mL (0.000-0.034)
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
[2020-06-10 23:30] LABS: Glucose,Whole Blood 181 mg/dL (75-99)
[2020-06-11] MEDS: HYDROmorphone 0.5 MG/0.5 ML SYRINGE IVP PRN ×6 (00:38→13:33)
[2020-06-11] MEDS: NICOTINE 7MG/24HR PATCH TRANSDERM SCH ×2 (00:38→08:00)
[2020-06-11 03:16] LABS: Glucose,Whole Blood 102 mg/dL (75-99)
[2020-06-11 05:39] LABS: Basophils % (A) 0 %; Eosinophils # (A) 0.1 k/uL (0-0.7); Eosinophils % (A) 1 %; HCT 35.9 % (34.0-46.0); HGB 11.6 gm/dL (11.4-16.0); Lymphocytes # (A) 2.8 k/uL (1.0-4.8); Lymphocytes % (A) 41 %; MCH 31.4 pg (25.0-35.0); MCHC 32.4 g/dL (31.0-37.0); MCV 96.9 fL (80.0-100.0); Mean Platelet Volume 9.6; Monocytes # (A) 0.4 k/uL (0-1.0); Monocytes % (A) 6 %; Neutrophils # (A) 3.5 k/uL (1.3-7.7); Neutrophils % (A) 51 %; Platelet Count 125 k/uL (150-450); RBC 3.71 m/uL (3.80-5.40); RDW 11.7 % (11.5-15.5); WBC 6.8 k/uL (3.8-10.6)
[2020-06-11 05:56] LABS: African American GFR (CKD) >90 (>60 ml/min/1.73 sqM); Anion Gap 3 mmol/L; Blood Urea Nitrogen 20 mg/dL (7-17); Calcium 8.1 mg/dL (8.4-10.2); Carbon Dioxide 27 mmol/L (22-30); Chloride 105 mmol/L (98-107); Glucose 86 mg/dL (74-99); Non-African American GFR(CKD) >90 (>60 ml/min/1.73 sqM); Potassium 3.6 mmol/L (3.5-5.1); Sodium 135 mmol/L (137-145)
[2020-06-11] MEDS ORDERED: PANTOPRAZOLE 40 MG/10 ML VIAL IV SCH (09:00)
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
[2020-06-11] MEDS ORDERED: ALPRAZolam 1 MG TAB PO PRN (09:10)
[2020-06-11] MEDS ORDERED: HYDROXYCHLOROQUINE SULFATE 200 MG TAB PO SCH ×2 (09:15→10:30)
[2020-06-11] MEDS ORDERED: predniSONE 5 MG TAB PO SCH ×2 (09:15→10:30)
[2020-06-11] MEDS ORDERED: HYDROcodone/APAP 10-325MG 1 EACH TAB PO PRN (09:43)
[2020-06-11] MEDS ORDERED: ALPRAZOLAM 2 MG PO PRN (10:22)
[2020-06-11 10:24] VITALS: RESP 15; TEMP 98
--- NOTE | 2020-06-11 11:35 | ECHOF ---
Referral Reason:Sternal fracture MEASUREMENTS -------- HEIGHT: 162.6 cm WEIGHT: 54.0 kg BP: 87/45 RVIDd: 2.8 cm (< 3.3) IVSd: 0.8 cm (0.6 - 1.1) LVIDd: 3.9 cm (3.9 - 5.3) LVPWd: 1.0 cm (0.6 - 1.1) EDV(Teich): 65 ml IVSs: 1.0 cm LVIDs: 3.4 cm LVPWs: 1.1 cm %IVS Thck: 23 % ESV(Teich): 48 ml EF(Teich): 26 % %FS: 12 % SV(Teich): 17 ml Ao Diam: 2.4 cm (2.0 - 3.7) AV Cusp: 1.7 cm (1.5 - 2.6) MV EXCURSION: 18.612 mm (> 18.000) MV EF SLOPE: 140 mm/s (70 - 150) EPSS: 0.1 cm MV E Ish: 0.97 m/s MV DecT: 194 ms MV Dec Weston: 5.0 m/s MV A Ish: 0.47 m/s MV E/A Ratio: 2.05 MV PHT: 56 ms TR Vmax: 2.02 m/s TR maxP.28 mmHg RAP: 5.00 mmHg RVSP: 21.28 mmHg FINDINGS -------- Sinus rhythm. This was a technically good study. LV size, wall thickness and systolic function are normal, with an EF greater than 55%. The left isaias tricular size is normal. The right ventricle is normal in size. The left atrial size is normal. The right atrial size is normal. The aortic valve is trileaflet, and appears structurally normal. No aortic stenosis or regurgitation. Mild mitral regurgitation is present. Mild tricuspid regurgitation present. Right ventricular systolic pressure is normal at < 35 mmHg. There is no pulmonic regurgitation present. The aortic root size is normal. There is no pericardial effusion. CONCLUSIONS -------- 1. LV size, wall thickness and systolic function are normal, with an EF greater than 55%. 2. The left ventricular size is normal. 3. The right ventricle is normal in size. 4. The left atrial size is normal. 5. The right atrial size is normal. 6. Mild mitral regurgitation is present. 7. Mild tricuspid regurgitation present. PERMANENT MOLD SUPERVISOR: Melissa Riddle RDCS
[2020-06-11 12:02] LABS: Glucose,Whole Blood 95 mg/dL (75-99)
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
[2020-06-11 14:48] VITALS: BP 91/55; PULSE 71
[2020-06-12] MEDS ORDERED: PANTOPRAZOLE 40 MG TABLET PO SCH (07:30)
[2020-06-12] MEDS ORDERED: metHOTREXate sodium 2.5 MG TAB PO SCH (09:00)
== END 2020-06-11 15:32 | disposition home or self-care (01) | DRG 566 ==
LOC: EC 19:21 → 2SICU 21:42
PROVIDERS: ADMIT Surgery; ATTEND Surgery
DX: S22.20XA Unspecified fracture of sternum, initial encounter for closed fracture (principal); V43.62XA Car passenger injured in collision with other type car in traffic accident, initial encounter; Y92.410 Unspecified street and highway as the place of occurrence of the external cause; N18.2 Chronic kidney disease, stage 2 (mild); M79.7 Fibromyalgia; M32.9 Systemic lupus erythematosus, unspecified; M32.14 Glomerular disease in systemic lupus erythematosus; M06.9 Rheumatoid arthritis, unspecified; I73.00 Raynaud's syndrome without gangrene; F17.210 Nicotine dependence, cigarettes, uncomplicated; F32.9 Major depressive disorder, single episode, unspecified; F41.9 Anxiety disorder, unspecified; I12.9 Hypertensive chronic kidney disease with stage 1 through stage 4 chronic kidney disease, or unspecified chronic kidney disease; Z83.2 Family history of diseases of the blood and blood-forming organs and certain disorders involving the immune mechanism; Z85.828 Personal history of other malignant neoplasm of skin; Z79.899 Other long term (current) drug therapy; Z90.49 Acquired absence of other specified parts of digestive tract; I34.0 Nonrheumatic mitral (valve) insufficiency; S70.219A Abrasion, unspecified hip, initial encounter; Z82.61 Family history of arthritis; Z82.3 Family history of stroke; Z82.0 Family history of epilepsy and other diseases of the nervous system; Z20.828 Contact with and (suspected) exposure to other viral communicable diseases; G43.909 Migraine, unspecified, not intractable, without status migrainosus; Z87.01 Personal history of pneumonia (recurrent); K21.9 Gastro-esophageal reflux disease without esophagitis; K44.9 Diaphragmatic hernia without obstruction or gangrene; Z88.8 Allergy status to other drugs, medicaments and biological substances
CPT/HCPCS: 71045; 71046; 71120; 71260; 72170; 80048; 80053; 82550; 82553; 84484; 85025; 93005; 93306; 96372; 99285

== ENCOUNTER → 2020-08-29 | Outpatient (CLI) | payer MEDICARE, OTHER ==
[2020-08-29 13:24] LABS: Basophils % (A) 0 %; Eosinophils % (A) 0 %; HCT 39.2 % (34.0-46.0); HGB 12.7 gm/dL (11.4-16.0); Lymphocytes # (A) 1.4 k/uL (1.0-4.8); Lymphocytes % (A) 16 %; MCH 32.2 pg (25.0-35.0); MCHC 32.5 g/dL (31.0-37.0); MCV 99.2 fL (80.0-100.0); Mean Platelet Volume 8.8; Monocytes # (A) 0.2 k/uL (0-1.0); Monocytes % (A) 2 %; Neutrophils # (A) 7.2 k/uL (1.3-7.7); Neutrophils % (A) 80 %; Platelet Count 135 k/uL (150-450); RBC 3.95 m/uL (3.80-5.40); RDW 11.6 % (11.5-15.5); WBC 8.9 k/uL (3.8-10.6)
[2020-08-29 13:41] LABS: Appearance,Urine Clear (Clear); Bilirubin,Urine Negative (Negative); Blood,Urine Negative (Negative); Color,Urine Yellow; Glucose,Urine (UA) Negative (Negative); Ketones,Urine Negative (Negative); Leukocyte Esterase,Urine Negative (Negative); Nitrite,Urine Negative (Negative); Protein,Urine Trace (Negative); Specific Gravity,Urine 1.024 (1.001-1.035); Urobilinogen,Urine <2.0 mg/dL (<2.0)
[2020-08-29 19:55] LABS: ALT 18 U/L (8-44); AST 25 U/L (13-35)
[2020-08-29 19:56] LABS: African American GFR (CKD) 109.9 (60.0-200.0); C Reactive Protein <0.4 mg/dL (0.0-0.8); Non-African American GFR(CKD) 94.8 (60.0-200.0)
[2020-08-29 20:36] LABS: DNA Double-Stranded NEGATIVE (NEGATIVE)
[2020-08-29 20:52] LABS: Erythrocyte Sedimentation Rate 2 mm/Hr (0-20)
[2020-08-30 10:01] LABS: Complement C3 62.8 mg/dL (80.0-207.0)
== END | disposition home or self-care (01) ==
LOC: LABWHC1 12:03
PROVIDERS: ATTEND Internal Medicine Rheumatology
DX: M32.9 Systemic lupus erythematosus, unspecified (principal)
CPT/HCPCS: 36415; 81003; 82565; 84450; 84460; 85025; 85652; 86140; 86160; 86225

== ENCOUNTER 2020-09-03 12:00 | Emergency (ER) | payer MEDICARE, OTHER ==
[2020-09-03 12:23] VITALS: BP 116/51; PULSE 79; RESP 18; TEMP 98.9
[2020-09-03] MEDS ORDERED: ACETAMINOPHEN TAB 500 MG TAB PO STA (12:42)
[2020-09-03] MEDS ORDERED: diazePAM 5 MG TAB PO STA (12:42)
--- NOTE | 2020-09-03 13:20 | XR ---
EXAMINATION TYPE: XR cervical spine comp DATE OF EXAM: 09/03/2020 TECHNIQUE: Frontal, lateral, oblique, and open mouth view of the cervical spine are obtained. HISTORY: pain COMPARISON: Cervical spine x-ray June 21, 2014 FINDINGS: The cervical spine is visualized in its entirety from C1 thru the top of T1 level, it is s table and straightened in alignment without evidence of acute fracture or dislocation. Slight grade 1 anterolisthesis C4 on C5 redemonstrated. Slightly more prominent grade 1 retrolisthesis C6 on C7. T he pre-vertebral soft tissue appears within normal limits. The C1-C2 articulation is within normal l imits on the open mouth view. Vertebral body heights are maintained. Mild disc space narrowing C5-C6 level. The oblique images are within normal limits. Overlying soft tissue is unremarkable. IMPRESSION: As above.
[2020-09-03] MEDS ORDERED: MORPHINE SULFATE 2 MG/ML SYRINGE IM STA (13:30)
[2020-09-03] MEDS ORDERED: HYDROmorphone 0.5 MG/0.5 ML SYRINGE IM STA (13:51)
--- NOTE | 2020-09-03 14:42 | ED ---
General Adult HPI - General Chief complaint: Neck Pain/Injury Stated complaint: neck pain Time Seen by Provider: 09/03/20 12:33 Source: patient, RN notes reviewed, old records reviewed Mode of arrival: ambulatory Limitations: no limitations - History of Present Illness Initial comments: 35 old female patient past history of fibromyalgia, lupus, chronic back pain since ED with chief complaint of neck pain. Patient reports that she woke up about 2 days ago and since then she has been having some muscle tightness in her neck as well as her trapezius muscle laterally. She denies any weakness headache paresthesias or any other acute complaints. Denies any chance of being . Systemic: Pt denies fatigue, fever/chills, rash. Pt denies weakness, night sweats, weight loss. Neuro: Pt denies headache, visual disturbances, syncope or pre-syncope. HEENT: Pt denies ocular discharge or irritation, otalgia, rhinorrhea, pharyngitis or notable lymphadenopathy. Cardiopulmonary: Pt denies chest pain, SOB, heart palpitations, dyspnea on exertion. Abdominal/GI: Pt denies abdominal pain, n/v/d. : Pt denies dysuria, burning w/ urination, frequency/urgency. Denies new onset urinary or bowel incontinence. MSK: Pt denies loss of strength or function in extremities. Neuro: Pt denies new onset weakness, paresthesias. - Related Data Home Medications Medication Instructions Recorded Confirmed ALPRAZolam [Xanax] 2 mg PO TID PRN 11/12/14 09/03/20 predniSONE [Prednisone] 5 mg PO QAM 11/12/14 09/03/20 HYDROcodone/APAP 10-325MG [[place] 1 tab PO Q4HR PRN 02/18/17 09/03/20 10-325] Hydroxychloroquine Sulfate 200 mg PO BID 02/18/17 09/03/20 [Plaquenil] lisinopriL [Lisinopril] 2.5 mg PO HS 02/18/17 09/03/20 metHOTREXate sodium [Methotrexate] 15 mg PO Th 02/18/17 09/03/20 Naproxen Sodium [Aleve] 220 - 440 mg PO DAILY PRN 09/03/20 09/03/20 Previous Rx's Medication Instructions Recorded Omeprazole [PriLOSEC] 20 mg PO AC-BRKFST capsule. 07/28/15 mycophenolate mofetiL [Cellcept] 1,000 mg PO BID tab 07/28/15 Allergies Allergy/AdvReac Type Severity Reaction Status Date / Time rituximab [From Rituxan] Allergy Anaphylaxis Verified 09/03/20 13:37 amlodipine besylate AdvReac Swelling Verified 09/03/20 13:37 [From Norvasc] metoclopramide [From Reglan] AdvReac Abdominal Verified 09/03/20 13:37 Pain Review of Systems ROS Statement: Those systems with pertinent positive or pertinent negative responses have been documented in the HPI. ROS Other: All systems not noted in ROS Statement are negative. Past Medical History Past Medical History: Cancer, Fibromyalgia, GERD/Reflux, Hypertension, Pneumonia, Renal Disease, Rheumatoid Arthritis (RA) Additional Past Medical History / Comment(s): Systemic Lupus, lupus nephritis with acute kidney injury 2012, Raynauds, chronic anemia requiring iron infusions and blood infusions, basal cell carcinoma right lower leg, hiatal hernia, migraines. History of Any Multi-Drug Resistant Organisms: None Reported Past Surgical History: Cholecystectomy Additional Past Surgical History / Comment(s): L shoulder bone shaved, lymph nodes removedx3 from bilateral axilla-benign, colonoscopy Past Anesthesia/Blood Transfusion Reactions: No Reported Reaction Past Psychological History: Anxiety, Depression Smoking Status: Current every day smoker Past Alcohol Use History: Occasional Past Drug Use History: None Reported - Past Family History Sister(s) Additional Family Medical History / Comment(s): pt's 1/2 sister had lupus Mother Family Medical History: Rheumatoid Arthritis (RA) Additional Family Medical History / Comment(s): hep c. maternal grandmother had dementia Father History Unknown: Yes Additional Family Medical History / Comment(s): pt's dad when she was 2 General Exam - General Exam Comments Initial Comments: Constitutional: NAD, AOX3, Pt has pleasant affect. HEENT: NC/AT, trachea midline, neck supple, no lymphadenopathy. Posterior pharynx non erythematous, without exudates. External ears appear normal, without discharge. Mucous membranes moist. Eyes PERRLA, EOM intact. There is no scleral icterus. No pallor noted. Cardiopulmonary: RRR, no murmurs, rubs or gallops, no JVD noted. Lungs CTAB in anterior and posterior [place]. No peripheral edema. Abdominal exam: Abdomen soft and non-distended. Abdomen non-tender to palpation in all 4 quadrants. Bowel sounds active in LLQ. No hepatosplenomegaly. No ecchymosis Neuro: CN II-XII intact. No nuchal rigidity. No raccon eyes, no kee sign, no hemotympanum. Mild tenderness to the cervical spine, paraspinal, trapezius muscles. No acute skin changes. MSK:. Full active ROM in upper and lower extremities, 5/5 stregnth. Limitations: no limitations Course Vital Signs 09/03/20 12:21 Temperature 98.9 F Pulse Rate 79 Respiratory 18 Rate Blood Pressure 116/51 O2 Sat by Pulse 100 Oximetry Medical Decision Making - Medical Decision Making 35-year-old female patient to ED for evaluation of neck and muscle tightness the last 2 days. Denies any falls or trauma. Denies any fevers any other acute complaints. He film was obtained. Does display slight grade 1 anterolisthesis C4 and C5. Furthermore prominent retrolisthesis C5 on C6. Prevertebral soft tissues are within normal limits. C1-C2 reticulations within normal limits. Pt does request narcotic pain medication by name. Patient pain appears to be musuclar in nature. Patient reports improvement in symptoms. Patient will be discharged with outpatient follow up and return precautions. Case discussed with Dr. Moss. Disposition Clinical Impression: Strain of neck muscle Disposition: HOME SELF-CARE Condition: Stable Instructions (If sedation given, give patient instructions): Cervical Strain (ED) Additional Instructions: Follow up with PCP tomorrow. Follow up with orthopedic consult tomorrow. Return to ED with any worsening symptoms. Is patient prescribed a controlled substance at d/c from ED?: No Referrals: Stepan Sevilla MD [Primary Care Provider] - 1-2 days Robel Ojeda MD [STAFF PHYSICIAN] - 1-2 days Andrew Beatty DO [Doctor of Osteopathic Medicine] - 1-2 days
== END 2020-09-03 15:00 | disposition home or self-care (01) ==
LOC: EC 12:00
DX: S16.1XXA Strain of muscle, fascia and tendon at neck level, initial encounter (principal); M43.12 Spondylolisthesis, cervical region; F41.9 Anxiety disorder, unspecified; F32.9 Major depressive disorder, single episode, unspecified; F17.200 Nicotine dependence, unspecified, uncomplicated; M06.9 Rheumatoid arthritis, unspecified; I10 Essential (primary) hypertension; Z79.899 Other long term (current) drug therapy; Z88.8 Allergy status to other drugs, medicaments and biological substances; Z85.828 Personal history of other malignant neoplasm of skin; X58.XXXA Exposure to other specified factors, initial encounter
CPT/HCPCS: 99284 ×2; 96372 ×2; 72050; J1170

== ENCOUNTER → 2021-01-02 | Outpatient (CLI) | payer MEDICARE, OTHER ==
[2021-01-02 15:15] LABS: ALT 19 U/L (4-34); AST 40 U/L (14-36); C Reactive Protein <5.0 mg/L (<10.0)
[2021-01-02 16:06] LABS: Creatinine,Urine Random 43.1 mg/dL; Protein/Creatinine Ratio,Urine 0.302
[2021-01-02 23:09] LABS: Basophils # (A) 0.02 X 10*3/uL (0.00-0.10); Basophils % (A) 0.3 %; Eosinophils # (A) 0.01 X 10*3/uL (0.04-0.35); Eosinophils % (A) 0.2 %; HCT 41.3 % (37.2-46.3); HGB 13.1 g/dL (12.0-15.0); Lymphocytes # (A) 1.79 X 10*3/uL (0.90-5.00); Lymphocytes % (A) 29.6 %; MCH 31.2 pg (27.0-32.0); MCHC 31.7 g/dL (32.0-37.0); MCV 98.3 fL (80.0-97.0); Mean Platelet Volume 13.1 fL (9.5-12.2); Monocytes # (A) 0.24 X 10*3/uL (0.20-1.00); Neutrophils # (A) 3.97 X 10*3/uL (1.80-7.70); Neutrophils % (A) 65.7 %; Platelet Count 158 X 10*3/uL (140-440); RDW 11.9 % (11.5-14.5); WBC 6.04 X 10*3/uL (4.50-10.00)
[2021-01-03 01:57] LABS: Erythrocyte Sedimentation Rate 3 mm/Hr (0-20)
== END | disposition home or self-care (01) ==
LOC: LABWHC1 12:08
PROVIDERS: ATTEND Internal Medicine Rheumatology
DX: M32.9 Systemic lupus erythematosus, unspecified (principal)
CPT/HCPCS: 36415; 82570; 84156; 84450; 84460; 85025; 85652; 86140

== ENCOUNTER → 2021-04-27 | Outpatient (CLI) | payer MEDICARE, OTHER ==
[2021-04-27 14:24] LABS: Creatinine,Urine Random 173.2 mg/dL; Protein/Creatinine Ratio,Urine 0.133
[2021-04-27 18:55] LABS: Basophils # (A) 0.02 X 10*3/uL (0.00-0.10); Basophils % (A) 0.2 %; Eosinophils # (A) 0.02 X 10*3/uL (0.04-0.35); Eosinophils % (A) 0.2 %; HCT 39.6 % (37.2-46.3); HGB 12.6 g/dL (12.0-15.0); Lymphocytes # (A) 1.53 X 10*3/uL (0.90-5.00); Lymphocytes % (A) 13.3 %; MCH 31.6 pg (27.0-32.0); MCHC 31.8 g/dL (32.0-37.0); MCV 99.2 fL (80.0-97.0); Mean Platelet Volume 12.4 fL (9.5-12.2); Monocytes # (A) 0.34 X 10*3/uL (0.20-1.00); Neutrophils % (A) 82.8 %; Platelet Count 174 X 10*3/uL (140-440); RBC 3.99 X 10*6/uL (4.10-5.20); RDW 11.7 % (11.5-14.5); WBC 11.47 X 10*3/uL (4.50-10.00)
[2021-04-27 20:27] LABS: ALT 13 U/L (8-44); AST 22 U/L (13-35); African American GFR (CKD) 109.9 (60.0-200.0); C Reactive Protein <0.4 mg/dL (0.0-0.8); Non-African American GFR(CKD) 94.8 (60.0-200.0)
[2021-04-27 22:16] LABS: Erythrocyte Sedimentation Rate 3 mm/Hr (0-20)
== END | disposition home or self-care (01) ==
LOC: LABWHC1 13:16
PROVIDERS: ATTEND Internal Medicine Rheumatology
DX: Z20.822 Contact with and (suspected) exposure to COVID-19 (principal); M32.9 Systemic lupus erythematosus, unspecified
CPT/HCPCS: 36415; 82565; 82570; 84156; 84450; 84460; 85025; 85652; 86140; 86769

== ENCOUNTER → 2021-05-14 | Outpatient (CLI) | payer MEDICARE, OTHER ==
[2021-05-14 18:10] LABS: Basophils # (A) 0.02 X 10*3/uL (0.00-0.10); Basophils % (A) 0.3 %; Eosinophils # (A) 0 X 10*3/uL (0.04-0.35); Eosinophils % (A) 0 %; HCT 37.1 % (37.2-46.3); HGB 11.8 g/dL (12.0-15.0); Lymphocytes # (A) 1.43 X 10*3/uL (0.90-5.00); MCH 31.4 pg (27.0-32.0); MCHC 31.8 g/dL (32.0-37.0); MCV 98.7 fL (80.0-97.0); Mean Platelet Volume 12.4 fL (9.5-12.2); Monocytes # (A) 0.21 X 10*3/uL (0.20-1.00); Monocytes % (A) 2.9 %; Neutrophils # (A) 5.48 X 10*3/uL (1.80-7.70); Neutrophils % (A) 76.5 %; Platelet Count 149 X 10*3/uL (140-440); RBC 3.76 X 10*6/uL (4.10-5.20); RDW 11.4 % (11.5-14.5); WBC 7.16 X 10*3/uL (4.50-10.00)
== END | disposition home or self-care (01) ==
LOC: LABWHC1 14:30
PROVIDERS: ATTEND Family Medicine
DX: D72.829 Elevated white blood cell count, unspecified (principal)
CPT/HCPCS: 36415; 85025

== ENCOUNTER → 2021-09-03 | Outpatient (CLI) | payer MEDICARE, OTHER ==
[2021-09-03 15:57] LABS: Creatinine,Urine Random 145.3 mg/dL
[2021-09-03 23:47] LABS: Basophils # (A) 0.03 X 10*3/uL (0.00-0.10); Basophils % (A) 0.3 %; Eosinophils # (A) 0.01 X 10*3/uL (0.04-0.35); Eosinophils % (A) 0.1 %; HCT 38.7 % (37.2-46.3); HGB 12.3 g/dL (12.0-15.0); Lymphocytes # (A) 2.53 X 10*3/uL (0.90-5.00); Lymphocytes % (A) 26.5 %; MCHC 31.8 g/dL (32.0-37.0); MCV 97.5 fL (80.0-97.0); Mean Platelet Volume 12.9 fL (9.5-12.2); Monocytes # (A) 0.32 X 10*3/uL (0.20-1.00); Monocytes % (A) 3.3 %; Neutrophils # (A) 6.64 X 10*3/uL (1.80-7.70); Neutrophils % (A) 69.5 %; Platelet Count 162 X 10*3/uL (140-440); RBC 3.97 X 10*6/uL (4.10-5.20); RDW 11.8 % (11.5-14.5); WBC 9.56 X 10*3/uL (4.50-10.00)
[2021-09-04 00:49] LABS: Erythrocyte Sedimentation Rate 4 mm/Hr (0-20)
[2021-09-04 01:27] LABS: ALT 13 U/L (8-44); AST 21 U/L (13-35); African American GFR (CKD) 109.5 (60.0-200.0); Complement C3 79.5 mg/dL (80.0-207.0); Non-African American GFR(CKD) 94.5 (60.0-200.0)
[2021-09-04 01:40] LABS: C Reactive Protein <0.30 mg/dL (0.00-0.80)
[2021-09-04 04:40] LABS: DNA Double-Stranded NEGATIVE (NEGATIVE)
== END | disposition home or self-care (01) ==
LOC: LABWHC1 15:24
PROVIDERS: ATTEND Internal Medicine Rheumatology
DX: M32.9 Systemic lupus erythematosus, unspecified (principal)
CPT/HCPCS: 36415; 82565; 82570; 84156; 84450; 84460; 85025; 85652; 86140; 86160; 86225

== ENCOUNTER 2022-02-08 12:12 | Emergency (ER) | payer MEDICARE, OTHER ==
[2022-02-08 12:50] VITALS: BP 134/78; PULSE 72; RESP 16; TEMP 97.9
[2022-02-08] MEDS ORDERED: SODIUM CHLORIDE 0.9% 1,000 ML IV STA (13:10)
[2022-02-08] MEDS ORDERED: ONDANSETRON 4 MG/2 ML VIAL IVP STA (13:10)
[2022-02-08] MEDS ORDERED: KETOROLAC 15 MG/ML 1 ML VIAL IVP STA (13:10)
[2022-02-08 13:38] LABS: Appearance,Urine Clear (Clear); Basophils % (A) 0 %; Bilirubin,Urine Negative (Negative); Blood,Urine Negative (Negative); Color,Urine Light Yellow; Eosinophils % (A) 1 %; Glucose,Urine (UA) Negative (Negative); HGB 14.6 gm/dL (11.4-16.0); Ketones,Urine Negative (Negative); Leukocyte Esterase,Urine Negative (Negative); Lymphocytes # (A) 1.5 k/uL (1.0-4.8); Lymphocytes % (A) 27 %; MCH 32.5 pg (25.0-35.0); MCHC 33.1 g/dL (31.0-37.0); MCV 98.1 fL (80.0-100.0); Mean Platelet Volume 9.1; Monocytes # (A) 0.2 k/uL (0-1.0); Monocytes % (A) 3 %; Neutrophils # (A) 3.8 k/uL (1.3-7.7); Neutrophils % (A) 67 %; Nitrite,Urine Negative (Negative); PH, Urine 5.5 (5.0-8.0); Platelet Count 177 k/uL (150-450); Protein,Urine Negative (Negative); RBC 4.48 m/uL (3.80-5.40); RDW 12.5 % (11.5-15.5); Specific Gravity,Urine 1.006 (1.001-1.035); Urobilinogen,Urine <2.0 mg/dL (<2.0); WBC 5.6 k/uL (3.8-10.6)
[2022-02-08 13:54] LABS: ALT 27 U/L (4-34); AST 31 U/L (14-36); African American GFR (CKD) >90 (>60 ml/min/1.73 sqM); Albumin 4.6 g/dL (3.5-5.0); Alkaline Phosphatase 49 U/L (38-126); Anion Gap 9 mmol/L; Blood Urea Nitrogen 16 mg/dL (7-17); Calcium 8.9 mg/dL (8.4-10.2); Carbon Dioxide 26 mmol/L (22-30); Chloride 104 mmol/L (98-107); Glucose 90 mg/dL (74-99); Lipase 74 U/L (23-300); Non-African American GFR(CKD) 82 (>60 ml/min/1.73 sqM); Potassium 4.1 mmol/L (3.5-5.1); Sodium 139 mmol/L (137-145); Total Bilirubin 0.6 mg/dL (0.2-1.3); Total Protein 7.4 g/dL (6.3-8.2)
--- NOTE | 2022-02-08 14:09 | CT ---
EXAMINATION TYPE: CT abdomen pelvis wo con DATE OF EXAM: 02/08/2022 COMPARISON: CT dated 03/15/2018 HISTORY: Rt flank pain CT DLP: 335.1 mGycm Automated exposure control for dose reduction was used. TECHNIQUE: Helical acquisition of images was performed from the lung bases through the pelvis. FINDINGS: LUNG BASES: No significant abnormality is appreciated. LIVER/GB: Previous cholecystectomy. No definite hepatic focal lesion by this nonenhanced CT scan. PANCREAS: No significant abnormality is seen. SPLEEN: Stable tiny splenic calcification, otherwise unremarkable spleen. ADRENALS: No significant abnormality is seen. KIDNEYS: 14 mm left lower pole renal cyst without gross suspicious feature, suboptimally assessed by this nonenhanced CT scan. Unremarkable kidneys otherwise. No definite radiodense urinary calculi. No hydroureter or hydronephrosis. No gross urinary bladder abnormality. FREE AIR: No free air is visualized RETROPERITONEAL ADENOPATHY: No pathologically enlarged lymph nodes REPRODUCTIVE ORGANS: 2.5 cm left ovarian cyst/follicle which could be normal for the patient's age. N o gross uterine or adnexal mass. PELVIC ADENOPATHY: No pathologically enlarged lymph nodes. OSSEOUS STRUCTURES: No gross aggressive bone lesion. BOWEL: No significant abnormality is seen. OTHER: No sizable ascites. IMPRESSION: No radiodense urinary calculi. No hydroureter or hydronephrosis. No definite acute abnormality seen i n the abdomen or the pelvis by this nonenhanced CT scan. Incidental findings as described above.
--- NOTE | 2022-02-08 14:24 | ED ---
Abdominal Pain HPI - General Chief Complaint: Abdominal Pain Stated Complaint: flank pain/back pain Time Seen by Provider: 02/08/22 12:52 Source: patient, RN notes reviewed, old records reviewed Mode of arrival: ambulatory Limitations: no limitations - History of Present Illness Initial Comments: Patient is a 36-year-old female, history of fibromyalgia, GERD, hypertension, lupus, presenting to the emergency Department with complaints of right upper qu adrant abdominal pain has been going on for 2 weeks. Patient states the pain is sometimes radiates towards the back and also down to the right groin. She has been seeing her PCP for this, she is on a dose of Levaquin currently for possible UTI. She states that pain has not improved since being on the antibiotic. She is on day 5, has a 10 day course. They also discussed doing a CT however she is not able scheduled that yet. She has no history of kidney stones. Patient denies being . She admits to some low-grade temperatures at home, nothing over 99. She admits some associated nausea, no vomiting, no diarrhea. Patient denies any chest pain or shortness of breath. She has history of cholecystectomy, no other abdominal surgeries. Patient is no further complaints. - Related Data Home Medications Medication Instructions Recorded Confirmed ALPRAZolam [Xanax] 2 mg PO TID PRN 11/12/14 09/03/20 predniSONE [Prednisone] 5 mg PO QAM 11/12/14 09/03/20 HYDROcodone/APAP 10-325MG [[place] 1 tab PO Q4HR PRN 02/18/17 09/03/20 10-325] Hydroxychloroquine Sulfate 200 mg PO BID 02/18/17 09/03/20 [Plaquenil] lisinopriL [Lisinopril] 2.5 mg PO HS 02/18/17 09/03/20 metHOTREXate sodium [Methotrexate] 15 mg PO Th 02/18/17 09/03/20 Naproxen Sodium [Aleve] 220 - 440 mg PO DAILY PRN 09/03/20 09/03/20 Previous Rx's Medication Instructions Recorded Omeprazole [PriLOSEC] 20 mg PO AC-BRKFST capsule. 07/28/15 mycophenolate mofetiL [Cellcept] 1,000 mg PO BID tab 07/28/15 Allergies Allergy/AdvReac Type Severity Reaction Status Date / Time rituximab [From Rituxan] Allergy Anaphylaxis Verified 02/08/22 12:48 amlodipine besylate AdvReac Swelling Verified 02/08/22 12:48 [From Norvasc] metoclopramide [From Reglan] AdvReac Abdominal Verified 02/08/22 12:48 Pain Review of Systems ROS Statement: Those systems with pertinent positive or pertinent negative responses have been documented in the HPI. ROS Other: All systems not noted in ROS Statement are negative. Past Medical History Past Medical History: Cancer, Fibromyalgia, GERD/Reflux, Hypertension, Pneumonia, Renal Disease, Rheumatoid Arthritis (RA) Additional Past Medical History / Comment(s): Systemic Lupus, lupus nephritis with acute kidney injury 2012, Raynauds, chronic anemia requiring iron infusions and blood infusions, basal cell carcinoma right lower leg, hiatal hernia, migraines. History of Any Multi-Drug Resistant Organisms: None Reported Past Surgical History: Cholecystectomy Additional Past Surgical History / Comment(s): L shoulder bone shaved, lymph nodes removedx3 from bilateral axilla-benign, colonoscopy Past Anesthesia/Blood Transfusion Reactions: No Reported Reaction Past Psychological History: Anxiety, Depression Smoking Status: Current every day smoker Past Alcohol Use History: Occasional Past Drug Use History: None Reported - Past Family History Sister(s) Additional Family Medical History / Comment(s): pt's 1/2 sister had lupus Mother Family Medical History: Rheumatoid Arthritis (RA) Additional Family Medical History / Comment(s): hep c. maternal grandmother had dementia Father History Unknown: Yes Additional Family Medical History / Comment(s): pt's dad when she was 2 General Exam - General Exam Comments Initial Comments: GENERAL: Patient is well-developed and well-nourished. Patient is nontoxic and in no acute distress. HEAD: Atraumatic, normocephalic. EYES: Pupils equal round and reactive to light, extraocular movements intact, sclera anicteric, conjunctiva are normal. Eyelids were unremarkable. ENT: TMs normal, nares patent, oropharynx clear without exudates. Moist mucous membranes. NECK: Normal range of motion, supple without lymphadenopathy or JVD. LUNGS: Unlabored respirations. Breath sounds clear to auscultation bilaterally and equal. No wheezes rales or rhonchi. HEART: Regular rate and rhythm without murmurs, rubs or gallops. ABDOMEN: Soft, mildly tender the right upper quadrant, right side of the abdomen normoactive bowel sounds. No guarding, no rebound. No masses appreciated. : Deferred MUSCULOSKELETAL: Normal extremities with adequate strength and normal range of motion, no pitting or edema. No clubbing or cyanosis. NEUROLOGICAL: Patient is alert and oriented x 3. Motor and sensory are also intact. Cranial nerves II through XII grossly intact. Symmetrical smile. Normal speech, normal gait. PSYCH: Normal mood, normal affect. SKIN: Warm, Dry, normal turgor, no rashes or lesions noted. Limitations: no limitations Course Vital Signs 02/08/22 12:48 Temperature 97.9 F Pulse Rate 72 Respiratory 16 Rate Blood Pressure 134/78 O2 Sat by Pulse 100 Oximetry Medical Decision Making - Medical Decision Making Patient is 36-year-old female here for right upper quadrant pain over the past 2 weeks. She is currently on Levaquin for UTI, day 5 of 10 days. Her vital signs are stable here, afebrile. Labs are all unremarkable including a normal urinalysis. CT the abdomen and pelvis showed no acute process, there is incidental findings of a left renal cyst, left ovarian cyst. Patient was reexamined, continues to have some mild pain. Discussed results with her. I recommended following up with her PCP and her cell tender helper. She is agreeable with this plan of care. She takes [place] at home and does have Zofran as well. I told her to take these medications as needed for symptoms. Return parameters were discussed and she verbalized understanding. Case discussed with Dr. Moss. - Lab Data Result diagrams: 02/08/22 13:30 02/08/22 13:30 Lab Results 02/08/22 02/08/22 02/08/22 Range/Units 13:30 13:30 13:30 WBC 5.6 (3.8-10.6) k/uL RBC 4.48 (3.80-5.40) m/uL Hgb 14.6 (11.4-16.0) gm/dL Hct 44.0 (34.0-46.0) % MCV 98.1 (80.0-100.0) fL MCH 32.5 (25.0-35.0) pg MCHC 33.1 (31.0-37.0) g/dL RDW 12.5 (11.5-15.5) % Plt Count 177 (150-450) k/uL MPV 9.1 Neutrophils % 67 % Lymphocytes % 27 % Monocytes % 3 % Eosinophils % 1 % Basophils % 0 % Neutrophils # 3.8 (1.3-7.7) k/uL Lymphocytes # 1.5 (1.0-4.8) k/uL Monocytes # 0.2 (0-1.0) k/uL Eosinophils # 0.0 (0-0.7) k/uL Basophils # 0.0 (0-0.2) k/uL Sodium (137-145) mmol/L Potassium (3.5-5.1) mmol/L Chloride (98-107) mmol/L Carbon Dioxide (22-30) mmol/L Anion Gap mmol/L BUN (7-17) mg/dL Creatinine (0.52-1.04) mg/dL Est GFR (CKD-EPI)AfAm (>60 ml/min/1.73 sqM) Est GFR (CKD-EPI)NonAf (>60 ml/min/1.73 sqM) Glucose (74-99) mg/dL Plasma Lactic Acid Trist[place] (0.7-2.0) mmol/L Calcium (8.4-10.2) mg/dL Total Bilirubin (0.2-1.3) mg/dL AST (14-36) U/L ALT (4-34) U/L Alkaline Phosphatase (38-126) U/L Total Protein (6.3-8.2) g/dL Albumin (3.5-5.0) g/dL Lipase (23-300) U/L Urine Color Light Yellow Urine Appearance Clear (Clear) Urine pH 5.5 (5.0-8.0) Ur Specific [place] 1.006 (1.001-1.035) Urine Protein Negative (Negative) Urine Glucose (UA) Negative (Negative) Urine Ketones Negative (Negative) Urine Blood Negative (Negative) Urine Nitrite Negative (Negative) Urine Bilirubin Negative (Negative) Urine Urobilinogen <2.0 (<2.0) mg/dL Ur Leukocyte Esterase Negative (Negative) Urine HCG, Qual Not Detected (Not Detectd) 02/08/22 02/08/22 Range/Units 13:30 13:30 WBC (3.8-10.6) k/uL RBC (3.80-5.40) m/uL Hgb (11.4-16.0) gm/dL Hct (34.0-46.0) % MCV (80.0-100.0) fL MCH (25.0-35.0) pg MCHC (31.0-37.0) g/dL RDW (11.5-15.5) % Plt Count (150-450) k/uL MPV Neutrophils % % Lymphocytes % % Monocytes % % Eosinophils % % Basophils % % Neutrophils # (1.3-7.7) k/uL Lymphocytes # (1.0-4.8) k/uL Monocytes # (0-1.0) k/uL Eosinophils # (0-0.7) k/uL Basophils # (0-0.2) k/uL Sodium 139 (137-145) mmol/L Potassium 4.1 (3.5-5.1) mmol/L Chloride 104 (98-107) mmol/L Carbon Dioxide 26 (22-30) mmol/L Anion Gap 9 mmol/L BUN 16 (7-17) mg/dL Creatinine 0.90 (0.52-1.04) mg/dL Est GFR (CKD-EPI)AfAm >90 (>60 ml/min/1.73 sqM) Est GFR (CKD-EPI)NonAf 82 (>60 ml/min/1.73 sqM) Glucose 90 (74-99) mg/dL Plasma Lactic Acid [place] 0.7 (0.7-2.0) mmol/L Calcium 8.9 (8.4-10.2) mg/dL Total Bilirubin 0.6 (0.2-1.3) mg/dL AST 31 (14-36) U/L ALT 27 (4-34) U/L Alkaline Phosphatase 49 (38-126) U/L Total Protein 7.4 (6.3-8.2) g/dL Albumin 4.6 (3.5-5.0) g/dL Lipase 74 (23-300) U/L Urine Color Urine Appearance (Clear) Urine pH (5.0-8.0) Ur Specific [place] (1.001-1.035) Urine Protein (Negative) Urine Glucose (UA) (Negative) Urine Ketones (Negative) Urine Blood (Negative) Urine Nitrite (Negative) Urine Bilirubin (Negative) Urine Urobilinogen (<2.0) mg/dL Ur Leukocyte Esterase (Negative) Urine HCG, Qual (Not Detectd) Disposition Clinical Impression: Abdominal pain Disposition: HOME SELF-CARE Condition: Stable Instructions (If sedation given, give patient instructions): Abdominal Pain (ED) Additional Instructions: Please return to the Emergency Department if symptoms worsen or any other concerns. Please follow-up with your PCP and cell tender helper as discussed. Is patient prescribed a controlled substance at d/c from ED?: No Referrals: Stepan Sevilla MD [Primary Care Provider] - 1-2 days Time of Disposition: 14:47
== END 2022-02-08 15:01 | disposition home or self-care (01) ==
LOC: EC 12:12
DX: R10.11 Right upper quadrant pain (principal); I10 Essential (primary) hypertension; F17.200 Nicotine dependence, unspecified, uncomplicated; Z88.9 Allergy status to unspecified drugs, medicaments and biological substances; Z88.8 Allergy status to other drugs, medicaments and biological substances
CPT/HCPCS: 36415; 80053; 83605; 83690; 85025; 81003; 81025; 74176; 96374; 96361; 99284; 96375; J2405; J1885

== ENCOUNTER → 2022-11-09 | Outpatient (CLI) | payer MEDICARE, OTHER | END | disposition home or self-care (01) | LOC: LABMAIN 17:46 | PROVIDERS: ATTEND Orthopaedic Surgery | DX: Z53.9 Procedure and treatment not carried out, unspecified reason (principal) ==

== ENCOUNTER → 2024-04-18 | Outpatient (CLI) | payer MEDICARE, OTHER ==
[2024-04-18 14:54] LABS: Creatinine,Urine Random 163.7 mg/dL
[2024-04-18 18:55] LABS: Albumin 4.6 g/dL (3.8-4.9); BUN/Creat Ratio 20.43 Ratio (12.00-20.00); Blood Urea Nitrogen 14.3 mg/dL (9.0-27.0); Calcium 9.3 mg/dL (8.7-10.3); Carbon Dioxide 24.2 mmol/L (21.6-31.8); Chloride 104 mmol/L (96-109); Globulin 2.3 g/dL (1.6-3.3); Glucose 99 mg/dL (70-110); Potassium 4.2 mmol/L (3.5-5.5); Sodium 140 mmol/L (135-145); Total Protein 6.9 g/dL (6.2-8.2)
[2024-04-18 18:56] LABS: ALT 13 U/L (8-44); AST 23 U/L (13-35); Alkaline Phosphatase 61 U/L (41-126); Total Bilirubin <0.2 mg/dL (0.3-1.2)
[2024-04-18 21:20] LABS: DNA Double-Stranded Negative (Negative)
== END | disposition home or self-care (01) ==
LOC: LABWHC1 12:38
PROVIDERS: ATTEND Internal Medicine Rheumatology
DX: M32.9 Systemic lupus erythematosus, unspecified (principal)
CPT/HCPCS: 36415; 80053; 82570; 84156; 86160; 86225

== ENCOUNTER → 2025-03-14 | Outpatient (CLI) | payer MEDICARE, OTHER ==
[2025-03-14 16:59] LABS: Creatinine,Urine Random 153.1 mg/dL
[2025-03-15 02:18] LABS: Basophils # (A) 0.02 X 10*3/uL (0.00-0.10); Basophils % (A) 0.3 %; Eosinophils # (A) 0 X 10*3/uL (0.04-0.35); Eosinophils % (A) 0 %; HCT 38.1 % (37.2-46.3); HGB 12.1 g/dL (12.0-15.0); Lymphocytes # (A) 1.77 X 10*3/uL (0.90-5.00); Lymphocytes % (A) 23.8 %; MCH 30.3 pg (27.0-32.0); MCHC 31.8 g/dL (32.0-37.0); MCV 95.5 FL (80.0-97.0); Monocytes # (A) 0.32 X 10*3/uL (0.20-1.00); Monocytes % (A) 4.3 %; NRBC Per 100 WBC 0 X 10*3/uL (0.00-0.01); Neutrophils # (A) 5.33 X 10*3/uL (1.80-7.70); Neutrophils % (A) 71.5 %; Platelet Count 164 X 10*3/uL (140-440); RBC 3.99 X 10*6/uL (4.10-5.20); WBC 7.45 X 10*3/uL (4.50-10.00)
[2025-03-15 02:52] LABS: ALT 12 U/L (8-44); AST 24 U/L (13-35); Albumin 4.8 g/dL (3.8-4.9); Alkaline Phosphatase 44 U/L (41-126); BUN/Creat Ratio 15.88 Ratio (12.00-20.00); Blood Urea Nitrogen 12.7 mg/dL (9.0-27.0); Calcium 9.4 mg/dL (8.7-10.3); Carbon Dioxide 23.7 mmol/L (21.6-31.8); Chloride 107 mmol/L (96-109); Glucose 86 mg/dL (70-110); Potassium 4.2 mmol/L (3.5-5.5); Sodium 143 mmol/L (135-145); Total Bilirubin 0.3 mg/dL (0.3-1.2); Total Protein 6.8 g/dL (6.2-8.2)
[2025-03-15 05:11] LABS: DNA Double-Stranded Negative (Negative)
== END | disposition home or self-care (01) ==
LOC: LABWHC1 15:10
PROVIDERS: ATTEND Internal Medicine Rheumatology
DX: M32.9 Systemic lupus erythematosus, unspecified (principal)
CPT/HCPCS: 36415; 80053; 82570; 84156; 85025; 86160; 86225